=== PATIENT | female | born 1995 | race African-American/Black ===

== ENCOUNTER 2017-05-01 19:56 | Emergency (ER) | payer SELFPAY ==
[~2017-05-01 19:56] MED LIST: ISOVUE-370 76%-LOCM 1 ML ONE
[2017-05-01 21:41] LABS: Hemoglobin 9.6 g/dL (12.0-16.0); Mean Corpuscular HGB CONC 36.2 g/dL (32.0-36.0); Mean Corpuscular Hemoglobin 36.5 pg (25.0-35.0); Mean Platelet Volume 8.1 fL (7.4-10.4); Platelet Count 393 thou/uL (130-400); RBC Distribution Width 18.4 % (11.5-14.5); Red Blood Cell (RBC) Count 2.64 mill/uL (4.00-5.20); Reticulocyte Count 11.4 % (0.5-1.5)
[2017-05-01] MEDS ORDERED: Morphine 4 MG/ML VIAL ONE ×2 (21:52→23:05)
[2017-05-01 21:56] LABS: Band 2 % (5-11); Eosinophils 2 % (0-10); Lymphocytes 22 % (28-48); MDiff Complete? YES; Monocytes 16 % (0-4); Neutrophil 58 % (31-61); Nucleated RBC 6 % (0); PLT Morphology Comment Appears Adequate; Polychromasia MARKED = >4 cells (100X) (0-2/hpf); Sickle Cells MODERATE= 6-15 cells (100X) (None Seen); Target Cells SLIGHT = 2-5 cells (100X) (0-1/hpf); White Blood Cell (WBC) Count 14.7 thou/uL (4.8-10.8)
[2017-05-01] MEDS ORDERED: Ondansetron HCl/PF 4 MG/2 ML Vial ONE (22:00)
[2017-05-01 23:27] LABS: Albumin 3.8 g/dL (3.5-5.0)
[2017-05-01 23:28] LABS: Calcium 8.9 mg/dL (7.8-10.44); Chloride 109 mmol/L (98-107); Potassium 3.9 mmol/L (3.5-5.1); Sodium 141 mmol/L (136-145)
[2017-05-01 23:29] LABS: Globulin 3.8 g/dL (2.4-3.5); Glucose 70 mg/dL (70-105); Protein, Total 7.6 g/dL (6.0-8.3)
[2017-05-01 23:31] LABS: Anion Gap 15 mmol/L (10-20); Bilirubin, Total 3.9 mg/dL (0.2-1.2); Carbon Dioxide 21 mmol/L (22-29)
[2017-05-01 23:32] LABS: Alkaline Phosphatase 80 U/L (40-150); Calc. Creatinine Clearance 0 mL/min (70-130); Estimated GFR-MDRD Greater than 90
[2017-05-01 23:33] LABS: BUN (Urea Nitrogen) 8 mg/dL (7.0-18.7)
[2017-05-01 23:34] LABS: AST (SGOT) 32 U/L (5-34)
[2017-05-01 23:35] LABS: ALT (SGPT) 16 U/L (8-55)
--- NOTE | 2017-05-01 23:39 | CT ---
EXAM CT ANGIOGRAM OF CHEST 05/01/17 HISTORY: Chest pain. Sickle cell disease. COMPARISON: None. TECHNIQUE: CT angiogram of the chest is performed in the axial plane. Three dimensional reformatted images are submitted for interpretation. FINDINGS: No mediastinal mass, lymphadenopathy, or hematoma. Heart size is upper normal. No significant pericar dial fluid. The thoracic aorta and upper abdominal aorta have an overall normal caliber. No periaorti c fat stranding. The visualized upper solid organs are unremarkable. Questionable prominence of the l eft hepatic lobe intrahepatic biliary system, incompletely evaluated. Trachea and central bronchi are patent. Focal 5 mm area of scarring in the right upper lobe. No suspi cious masses or consolidation. No pleural effusion. No pneumothorax. There are no lytic or blastic le sions of the osseous structures. Limited evaluation of the pulmonary arterial system due to timing of contrast bolus. There is adequat e contrast opacification of the pulmonary arterial system to the level of the proximal lobar arteries . Evaluation of mid to distal lobar arteries, segmental and subsegmental arteries is limited. No fill ing defect to the level of the proximal lobar arteries. IMPRESSION: 1. No filling defect to the level of the proximal lobar arteries. 2. Possible prominence of the intrahepatic biliary system involving the left hepatic lobe. Audrey r interrogation with nonemergent abdomen MRI or abdomen and pelvic CT can be performed. POS: [facility]
== END 2017-05-02 | disposition home or self-care (01) ==
LOC: ERS 19:56
DX: D57.00 Hb-SS disease with crisis, unspecified (principal); Z79.899 Other long term (current) drug therapy
CPT/HCPCS: 36415; 71275; 80053; 85025; 85046; 96361; 96374; 96375; 96376; J2270; J2405

== ENCOUNTER 2018-02-04 00:04 | Emergency (ER) | payer SELFPAY ==
[2018-02-04 00:33] LABS: Reticulocyte Count 13.1 % (0.5-1.5)
[2018-02-04 00:39] LABS: Mean Corpuscular Hemoglobin 35.1 pg (27.0-31.0); Red Blood Cell (RBC) Count 2.56 mill/uL (4.20-5.40); White Blood Cell (WBC) Count 13.7 thou/uL (4.8-10.8)
[2018-02-04] MEDS ORDERED: Morphine 4 MG/ML VIAL ONE ×2 (00:39→01:53)
[2018-02-04] MEDS ORDERED: Ondansetron HCl/PF 4 MG/2 ML Vial ONE (00:43)
[2018-02-04] MEDS ORDERED: Ketorolac Tromethamine 30 MG/ML VIAL ONE (00:45)
[2018-02-04 00:52] LABS: ALT (SGPT) 17 U/L (8-55); AST (SGOT) 39 U/L (5-34); Albumin 4.4 g/dL (3.5-5.0); Alkaline Phosphatase 89 U/L (40-150); Anion Gap 16 mmol/L (10-20); BUN (Urea Nitrogen) 9 mg/dL (7.0-18.7); Bilirubin, Total 8.1 mg/dL (0.2-1.2); Calc. Creatinine Clearance 0 mL/min (70-130); Calcium 9.4 mg/dL (7.8-10.44); Carbon Dioxide 21 mmol/L (22-29); Chloride 107 mmol/L (98-107); Estimated GFR-MDRD Greater than 90; Globulin 3.7 g/dL (2.4-3.5); Glucose 108 mg/dL (70-105); Potassium 3.6 mmol/L (3.5-5.1); Protein, Total 8.1 g/dL (6.0-8.3); Sodium 140 mmol/L (136-145)
[2018-02-04 00:58] LABS: Band 1 % (5-11); Eosinophils 1 % (0-10); Hypochromia SLIGHT = 6-15 cells (100X) (0-5/hpf); Lymphocytes 39 % (21-51); MDiff Complete? YES; Mean Corpuscular HGB CONC 36.9 g/dL (32.0-36.0); Mean Platelet Volume 8.4 fL (7.4-10.4); Monocytes 18 % (0-10); Neutrophil 41 % (42-75); Nucleated RBC 3 % (0); Platelet Count 373 thou/uL (130-400); Polychromasia SLIGHT = 2-3 cells (100X) (0-2/hpf); RBC Distribution Width 20.6 % (11.5-14.5); Reflex for Review?? YES; Sickle Cells MODERATE= 6-15 cells (100X) (None Seen); Target Cells SLIGHT = 2-5 cells (100X) (0-1/hpf)
[2018-02-04 01:06] LABS: BHCG - Serum Negative (NEGATIVE); Pregs Control Background? CLEAR/WHITE (CLR/WHITE); Pregs Control Bar Appear? YES (CONTROL BAR)
--- NOTE | 2018-02-04 08:36 | RAD ---
PORTABLE AP CHEST: Date: 02/04/18 HISTORY: Sickle cell crisis, chest pain. COMPARISON: 07/25/16. FINDINGS: Cardiac silhouette is magnified by projection, but does appear large in size compared to prior study. Pulmonary vasculature is within normal limits. The lungs are clear. Osseous structures are unchanged in appearance from prior exam. IMPRESSION: 1. Cardiomegaly. 2. No acute cardiopulmonary process. POS: [facility]
== END 2018-02-04 02:52 | disposition home or self-care (01) ==
LOC: ERS 00:04
DX: D57.00 Hb-SS disease with crisis, unspecified (principal)
CPT/HCPCS: 36415; 71045; 80053; 84703; 85025; 85046; 85060; 96361; 96374; 96375; 96376; J1885; J2270; J2405

== ENCOUNTER 2018-02-04 06:57 | Inpatient (IN) | payer SELFPAY ==
[2018-02-04] MEDS ORDERED: Ondansetron HCl/PF 4 MG/2 ML Vial ONE ×2 (08:11→09:27)
[2018-02-04] MEDS ORDERED: Morphine 4 MG/ML VIAL ONE ×2 (08:11→09:26)
[2018-02-04] MEDS ORDERED: Ketorolac Tromethamine 30 MG/ML VIAL ONE (08:21)
[2018-02-04 08:39] LABS: Reticulocyte Count 12.7 % (0.5-1.5)
[2018-02-04 08:42] LABS: ALT (SGPT) 23 U/L (8-55); AST (SGOT) 67 U/L (5-34); Albumin 4.6 g/dL (3.5-5.0); Alkaline Phosphatase 94 U/L (40-150); Anion Gap 15 mmol/L (10-20); BUN (Urea Nitrogen) 9 mg/dL (7.0-18.7); Bilirubin, Total 9.5 mg/dL (0.2-1.2); Calc. Creatinine Clearance 0 mL/min (70-130); Calcium 9.6 mg/dL (7.8-10.44); Carbon Dioxide 21 mmol/L (22-29); Chloride 108 mmol/L (98-107); Estimated GFR-MDRD Greater than 90; Glucose 98 mg/dL (70-105); Potassium 3.7 mmol/L (3.5-5.1); Protein, Total 8.6 g/dL (6.0-8.3); Sodium 140 mmol/L (136-145)
[2018-02-04 08:47] LABS: BHCG - Serum Negative (NEGATIVE); Pregs Control Background? CLEAR/WHITE (CLR/WHITE); Pregs Control Bar Appear? YES (CONTROL BAR)
[2018-02-04 09:16] LABS: Band 4 % (5-11); Hemoglobin 9.7 g/dL (12.0-16.0); Lymphocytes 8 % (21-51); MDiff Complete? YES; Mean Corpuscular HGB CONC 36.3 g/dL (32.0-36.0); Mean Corpuscular Hemoglobin 34.5 pg (27.0-31.0); Mean Corpuscular Volume 94.9 fL (78.0-98.0); Mean Platelet Volume 8.6 fL (7.4-10.4); Monocytes 6 % (0-10); Neutrophil 82 % (42-75); Nucleated RBC 6 % (0); PLT Morphology Comment Appears Increased; Platelet Count 426 thou/uL (130-400); Poikilocytosis MODERATE=16-30 cells (100X) (0-5/hpf); Polychromasia SLIGHT = 2-3 cells (100X) (0-2/hpf); RBC Distribution Width 20.6 % (11.5-14.5); Red Blood Cell (RBC) Count 2.82 mill/uL (4.20-5.40); Sickle Cells MODERATE= 6-15 cells (100X) (None Seen)
[2018-02-04 09:33] LABS: Bilirubin Negative (Negative); Blood, Urine Moderate (Negative); Clarity CLEAR (Clear); Glucose, Urine (Dipstick) Negative (Negative); Leukocyte Negative (Negative); Nitrite Negative (Negative); Protein, Urine (Dipstick) 100 mg/dL (Neg-Trace); Specific Gravity, Urine 1.006 (1.002-1.036)
[2018-02-04 09:36] LABS: Bacteria/HPF Rare-Few HPF (None Seen); Hyaline Casts/LPF 0-3 HYALINE CAST LPF (0-3 Hyaline); Pathc Cast-AUWi Flag 0.14 (0-2.49); RBC/HPF 0-3 HPF (0-3); Squamous Epithelial 0-3 HPF (0-3); WBC/HPF 0-3 HPF (0-3)
--- NOTE | 2018-02-04 09:38 | RAD ---
FRONTAL VIEW CHEST: Comparison: 02-04-18 Indication: Chest pain FINDINGS: Cardiac silhouette is stable. There is no new consolidation or effusion. No pneumothorax. Osseous str uctures are intact. IMPRESSION: 1. Stable chest. 2. Persistent enlargement of the cardiac silhouette. POS: [facility]
[2018-02-04] MEDS ORDERED: cefTRIAXone\\ROCEPHIN 1 GM VIAL ONE (09:40)
[2018-02-04] MEDS ORDERED: Azithromycin 500 MG VIAL ONE (09:40)
[2018-02-04] MEDS ORDERED: Zolpidem Tartrate 5 MG TAB PO PRN (12:29)
[2018-02-04] MEDS ORDERED: Bisacodyl 5 MG TAB PO PRN (12:29)
[2018-02-04] MEDS ORDERED: Bisacodyl 10 MG SUPP PR PRN (12:29)
[2018-02-04] MEDS ORDERED: Chloraseptic Spray 180 ml Bottle PO PRN (12:29)
[2018-02-04] MEDS ORDERED: Ondansetron HCl/PF 4 MG/2 ML Vial IVP PRN (12:29)
[2018-02-04] MEDS ORDERED: Loperamide HCl 2 MG CAP PO PRN (12:29)
[2018-02-04] MEDS ORDERED: Diabetic Tussin 200 MG/10 ML UDCUP PO PRN (12:29)
[2018-02-04] MEDS ORDERED: Ondansetron ODT 4 MG TAB PO PRN (12:29)
[2018-02-04] MEDS ORDERED: diphenhydrAMINE 25 MG CAP PO PRN (12:29)
[2018-02-04] MEDS ORDERED: Artificial Tears 18 DROP/0.9 ML EA EYE PRN (12:29)
[2018-02-04] MEDS ORDERED: Senokot 8.6 MG TAB PO PRN (12:29)
[2018-02-04] MEDS ORDERED: Milk Of Magnesia 30 ML UDCUP PO PRN (12:29)
[2018-02-04] MEDS ORDERED: Calcium Carbonate 500 MG ChewTAB PO PRN (12:29)
[2018-02-04] MEDS ORDERED: hydrALAZINE 20 MG/ML VIAL SLOW IVP PRN (12:29)
[2018-02-04] MEDS ORDERED: Eucerin (Mineral Oil/Petrolatum,White) 30 gm Jar TOP PRN (12:29)
[2018-02-04] MEDS ORDERED: diphenhydrAMINE 50 MG/ML VIAL IVP PRN (12:29)
[2018-02-04] MEDS ORDERED: Sodium Chloride 0.65% Nasal 44 ML BOT EA NARE PRN (12:29)
[2018-02-04] MEDS ORDERED: Morphine 4 MG/ML VIAL SLOW IVP PRN (12:45)
[2018-02-04] MEDS ORDERED: cefTRIAXone\\ROCEPHIN 1 GM in Sodium Chloride 0.9% 100 ML IVPB SCH (12:45)
[2018-02-04] MEDS: Sodium Chloride 0.9% 1,000 ML IV SCH ×3 (12:48→22:47)
--- NOTE | 2018-02-04 13:02 | HP ---
PRIMARY CARE PHYSICIAN: [facility] call admission. REASON FOR ADMISSION: Acute sickle cell painful crisis. HISTORY OF PRESENT ILLNESS: This is a 22-year-old -[place] female, who has underlying sickle cell disease, who gets sickle cell painful crisis, mostly during her menstrual cycle. This year, merna crowder required total of 3 admission in hospital for her severe painful crises. She is managing her mild painful crisis with [id number] pain medication. Last night, the patient needed to come to the emergency room for her leg pain, arm pain, and back pain. She was treated in the emergency room with the fluid and pain medication, and she was feeling a little bit better and that is why she went to [facility], but after going home, her pain started back again and it was about 10/10 in intensity, sharp janelle n. She denied any chest pain. She denies any nausea or vomiting, but she was feeling mild shortness of breath. She denies any urinary tract infection symptoms. She denies any constipation or diarrhe a. She denies any fever or chills. Last night, when she came to emergency room, her WBC count was 13.7, and this morning, she has to ret urn back for a similar intense pain and her white count increased to 19.0. She also has reticulocyto sis. At this point, the patient is still in painful crisis and she is not stable enough to go home f [facility] emergency room and that is why we decided to keep this patient in the hospital. REVIEW OF SYSTEMS: The following complete review of systems was negative, unless otherwise mentioned in the HPI or below: Constitutional: Weight loss or gain, ability to conduct usual activities. Sk in: Rash, itching. Eyes: Double vision, pain. ENT/Mouth: Nose bleeding, neck stiffness, pain, te nderness. Cardiovascular: Palpitations, dyspnea on exertion, orthopnea. Respiratory: Shortness of breath, wheezing, cough, hemoptysis, fever, or night sweats. Gastrointestinal: Poor appetite, abdo berny pain, heartburn, nausea, vomiting, constipation, or diarrhea. Genitourinary: Urgency, frequen cy, dysuria, nocturia. Musculoskeletal: Pain, swelling. Neurologic/Psychiatric: Anxiety, depressi on. Allergy/Immunologic: Skin rash, bleeding tendency. Please see my HPI for pertinent positive an d negative. All other review of systems reviewed and negative except as mentioned in the HPI. EMERGENCY ROOM COURSE: The patient is given morphine 4 mg x2, Toradol, Rocephin, azithromycin, IV fl uid, Zofran 4 mg. PAST MEDICAL HISTORY: Sickle cell disease; history of cholelithiasis, required surgical: Laparoscop ic cholecystectomy. PAST SURGICAL HISTORY: Umbilical herniorrhaphy, laparoscopic cholecystectomy. PAST PSYCHIATRIC HISTORY: Reviewed and negative. ALLERGIES: No known drug allergy. CURRENT HOME MEDICATIONS: The patient is not following any ordnance mechanic and she is not on any specif ic treatment for sickle cell disease, but she is taking [id number] pain medication and folic ac id. FAMILY HISTORY: Sickle cell disease to her aunt. SOCIAL HISTORY: Patient works at [employer]. She denies any tobacco, alcohol, or illicit drug abuse. PHYSICAL EXAMINATION: VITAL SIGNS: On arrival, blood pressure 141/90, pulse 89, respiratory rate 18, temperature 98.5, sat uration 100% on room air, weight 72.6 kilogram. GENERAL: Patient is currently alert, awake, in no obvious acute distress. HEENT: Head: Normocephalic, atraumatic. Eyes: Pupils round, reactive to light. Extraocular muscl e intact. ENT: Oropharynx within normal limits. Moist mucous membranes. No oral lesion, no pharyn geal erythema, no exudate. NECK: Supple, no JVD, no thyromegaly, no carotid bruit, no jugular venous distention. LUNGS: Clear to auscultation without any rhonchi or rales. CARDIAC: S1 and S2, regular. No murmur, no gallop, no rub. ABDOMEN: Soft, bowel sounds present, nontender, nondistended. No organomegaly, no mass, no suprapub ic tenderness. BACK EXAMINATION: Unremarkable, no CVA tenderness. EXTREMITIES: Upper extremities, passive movement of all joints are normal. Lower extremities, no ed rosa. Good distal pulsation. SKIN: No skin rash. HEMATOLOGICAL SYSTEM: No lymphadenopathy. NEUROLOGIC: Nonfocal examination. Eye examination, icterus noted in the sclerae. SIGNIFICANT LABORATORIES: CBC: WBC 19.0, hemoglobin 9.7, platelets 426 with bandemia. Reticulocyte count 12.7. BMP: Sodium 140, potassium 3.7, chloride 108, carbon dioxide 21, anion gap 15, BUN 9, creatinine 0.61, glucose 98, calcium 9.6. LFT: Bilirubin 9.5, AST 67, ALT 23, alkaline phosphatase 94, albumin 4.6. test negative. Urinalysis: Bilirubinogen present. Chest x-ray, based o n my review, no acute cardiopulmonary process. ASSESSMENT AND PLAN: 1. Acute sickle cell painful crisis. The patient will require admission in hospital for pain contro l. She will be treated with IV fluid NS at 125 mL per hour. Oxygen will be given and her pain will be controlled with narcotics with morphine 4 mg every 2 hourly p.r.n., Harold 10 mg 1 tablet q.4 hourl y p.r.n. along with Toradol 15 mg IV q.6 hourly p.r.n. We will try to control her pain as quickly as possible. We will also continue folic acid and vitamin B12 therapy. 2. Leukocytosis with thrombocytosis, likely due to sickle cell painful crisis. Does not suspect any infection, but until her improvement, we will continue empirically Rocephin 1 gram q.24 hours. 3. Sickle cell anemia. The patient will need outpatient Hematology followup. She will need hydroxy urea to prevent recurrent hospitalization. Patient will continue folic acid, vitamin B12 therapy. B ecause of current acute sickle cell painful crisis, he has reticulocytosis. 4. Abnormal liver function tests. Patient has hyperbilirubinemia due to sickle cell disease. 5. Deep venous thrombosis prophylaxis. Lovenox 40 mg subcutaneous daily. 6. Gastrointestinal prophylaxis, Pepcid 20 mg p.o. b.i.d. CODE STATUS: The patient is FULL CODE. The patient's mother is surrogate decision maker. Disposition plan based on clinical course. We are expecting patient's stay in hospital more than 2 m idnights. Plan of care discussed with the patient and her mother at bedside.
[2018-02-04] MEDS: HYDROcodone/Acetaminophen 10/325 mg Tablet PO PRN (13:04)
[2018-02-04] MEDS: Ketorolac Tromethamine 30 MG/ML VIAL IVP PRN ×2 (16:59→23:06)
[2018-02-04] MEDS: Enoxaparin Sodium 40 MG/0.4 ML SYRINGE SC SCH (21:30)
[2018-02-04] MEDS: Famotidine 20 MG TAB PO SCH (21:30)
[2018-02-04] MEDS: Acetaminophen 325 MG TAB PO PRN (23:24)
[2018-02-05] MEDS: Ketorolac Tromethamine 30 MG/ML VIAL IVP PRN ×4 (04:53→21:38)
[2018-02-05 06:40] LABS: ALT (SGPT) 22 U/L (8-55); AST (SGOT) 63 U/L (5-34); Albumin 3.7 g/dL (3.5-5.0); Alkaline Phosphatase 85 U/L (40-150); Anion Gap 12 mmol/L (10-20); BUN (Urea Nitrogen) 7 mg/dL (7.0-18.7); Bilirubin, Total 7.7 mg/dL (0.2-1.2); Calc. Creatinine Clearance 0 mL/min (70-130); Calcium 8.5 mg/dL (7.8-10.44); Carbon Dioxide 21 mmol/L (22-29); Chloride 107 mmol/L (98-107); Estimated GFR-MDRD Greater than 90; Globulin 3.2 g/dL (2.4-3.5); Glucose 115 mg/dL (70-105); Potassium 3.2 mmol/L (3.5-5.1); Protein, Total 6.9 g/dL (6.0-8.3); Sodium 137 mmol/L (136-145)
[2018-02-05 06:51] LABS: Band 5 % (5-11); Eosinophils 1 % (0-10); Hemoglobin 8.5 g/dL (12.0-16.0); Lymphocytes 13 % (21-51); MDiff Complete? YES; Mean Corpuscular HGB CONC 36.2 g/dL (32.0-36.0); Mean Corpuscular Hemoglobin 34.3 pg (27.0-31.0); Mean Corpuscular Volume 94.6 fL (78.0-98.0); Monocytes 11 % (0-10); Neutrophil 70 % (42-75); Nucleated RBC 13 % (0); PLT Morphology Comment Appears Adequate; Platelet Count 321 thou/uL (130-400); Polychromasia SLIGHT = 2-3 cells (100X) (0-2/hpf); RBC Distribution Width 19.3 % (11.5-14.5); Red Blood Cell (RBC) Count 2.48 mill/uL (4.20-5.40); Sickle Cells MODERATE= 6-15 cells (100X) (None Seen); White Blood Cell (WBC) Count 15.2 thou/uL (4.8-10.8)
[2018-02-05] MEDS ORDERED: Potassium Chloride 20 MEQ TAB PO SCH (08:00)
[2018-02-05] MEDS: Famotidine 20 MG TAB PO SCH ×2 (08:07→21:33)
[2018-02-05] MEDS: Cyanocobalamin (Vitamin B-12) 1,000 MCG TAB PO SCH (08:07)
[2018-02-05] MEDS: Folic Acid 1 MG TAB PO SCH (08:07)
[2018-02-05] MEDS: cefTRIAXone\\ROCEPHIN 1 GM in Sodium Chloride 0.9% 100 ML IVPB SCH (08:07)
[2018-02-05] MEDS ORDERED: Enoxaparin Sodium 40 MG/0.4 ML SYRINGE SC SCH (09:00)
--- NOTE | 2018-02-05 09:49 | PDOC.PN ---
- Subjective Encounter Start Date: 02/05/18 Encounter Start Time: 07:30 pt was still having lot of pain this morning Patient seen and examined. No overnight events - Objective Resuscitation Status: Resuscitation Status FULL:Full Resuscitation MAR Reviewed: Yes Vital Signs & Weight: Vital Signs (12 hours) Temp Pulse Resp BP Pulse Ox 02/05/18 08:00 99.3 F 96 18 133/83 96 02/05/18 07:06 98 02/05/18 04:45 98.3 F 91 18 128/74 98 02/05/18 00:30 99.2 F 02/04/18 23:06 101.0 F H 97 20 133/74 96 I&O: 02/04/18 02/05/18 02/06/18 06:59 06:59 06:59 Intake Total 3207 Balance 3207 Result Diagrams: 02/05/18 05:53 02/05/18 05:53 Phys Exam - Physical Examination Constitutional: NAD HEENT: PERRLA, moist MMs, sclera anicteric Neck: no JVD, supple Respiratory: no wheezing, no rales, no rhonchi Cardiovascular: RRR, no significant murmur, no rub Gastrointestinal: soft, non-tender, no distention, positive bowel sounds Musculoskeletal: no edema, pulses present Neurological: non-focal, normal sensation, moves all 4 limbs Psychiatric: normal affect, A&O x 3 Skin: no rash, normal turgor Dx/Plan (1) Sickle cell pain crisis Code(s): D57.00 - HB-SS DISEASE WITH CRISIS, UNSPECIFIED Status: Acute (2) Hypokalemia Code(s): E87.6 - HYPOKALEMIA Status: Acute (3) Leukocytosis Code(s): D72.829 - ELEVATED WHITE BLOOD CELL COUNT, UNSPECIFIED Status: Acute (4) Hyperbilirubinemia Code(s): E80.6 - OTHER DISORDERS OF BILIRUBIN METABOLISM Status: Chronic (5) Sickle cell anemia Code(s): D57.1 - SICKLE-CELL DISEASE WITHOUT CRISIS Status: Chronic (6) Transaminitis Code(s): R74.0 - NONSPEC ELEV OF LEVELS OF TRANSAMNS & LACTIC ACID DEHYDRGNSE Status: Chronic - Plan cont current plan of care, continue antibiotics, incentive spirometry, out of bed/ambulate * replace potassium * continue IVF, oxygen, and narcotics for pain control * continue empiric rocephin * medication reviewed as below * symptomatic treatment. Review of Systems - Review of Systems Constitutional: negative: fever, chills, sweats, weakness, malaise, other Eyes: negative: Pain, Vision Change, Conjunctivae Inflammation, Eyelid Inflammation, Redness, Other ENT: negative: Ear Pain, Ear Discharge, Nose Pain, Nose Discharge, Nose Congestion, Mouth Pain, Mouth Swelling, Throat Pain, Throat Swelling, Other Respiratory: negative: Cough, Dry, Shortness of Breath, Hemoptysis, SOB with Excertion, Pleuritic Pain, Sputum, Wheezing Cardiovascular: negative: chest pain, palpitations, orthopnea, paroxysmal nocturnal dyspnea, edema, light headedness, other Gastrointestinal: negative: Nausea, Vomiting, Abdominal Pain, Diarrhea, Constipation, Melena, Hematochezia, Other Genitourinary: negative: Dysuria, Frequency, Incontinence, Hematuria, Retention , Other Musculoskeletal: Arm Pain, Leg Pain. negative: Neck Pain, Shoulder Pain, Back Pain, Hand Pain, Foot Pain, Other - Medications/Allergies Allergies/Adverse Reactions: Allergies Allergy/AdvReac Type Severity Reaction Status Date / Time No Known Drug Allergies Allergy Verified 08/04/15 11:12 Medications: Current Medications Acetaminophen (Tylenol) 650 mg PO Q4H PRN PRN Reason: Headache/Fever/Mild Pain (1-3) Last Admin: 02/04/18 23:24 Dose: 650 mg Hydrocodone Bitart/Acetaminophen ([place] 10/325) 1 tab PO Q4H PRN PRN Reason: Moderate Pain (4-6) Last Admin: 02/04/18 13:04 Dose: 1 tab Artificial Tears (Tears Naturale) 0 drop EA EYE PRN PRN PRN Reason: Dry Eyes Bisacodyl (Dulcolax) 10 mg PO DAILYPRN PRN PRN Reason: Constipation Bisacodyl (Dulcolax) 10 mg [place] DAILYPRN PRN PRN Reason: Constipation Calcium Carbonate (Tums) 1,000 mg PO Q4H PRN PRN Reason: Heartburn or Indigestion Cyanocobalamin (Vitamin B-12) 1,000 mcg PO DAILY [facility] Last Admin: 02/05/18 08:07 Dose: 1,000 mcg Diphenhydramine HCl (Benadryl) 25 mg IVP Q4H PRN PRN Reason: Itching Diphenhydramine HCl (Benadryl) 25 mg PO Q4H PRN PRN Reason: Itching Enoxaparin Sodium (Lovenox) 40 mg SC 2100 [facility] Last Admin: 02/04/18 21:30 Dose: 40 mg Famotidine (Pepcid) 20 mg PO BID [facility] Last Admin: 02/05/18 08:07 Dose: 20 mg Folic Acid (Folvite) 1 mg PO DAILY [facility] Last Admin: 02/05/18 08:07 Dose: 1 mg Guaifenesin (Robitussin Sf) 200 mg PO Q4H PRN PRN Reason: Cough Hydralazine HCl (Apresoline) 10 mg SLOW IVP Q4H PRN PRN Reason: Systolic BP > 180 Sodium Chloride (Normal Saline 0.9%) 1,000 mls @ 125 mls/hr IV .Q8H [facility] Last Admin: 02/04/18 22:47 Dose: 1,000 mls Ceftriaxone Sodium 1 gm/ (Sodium Chloride) 100 mls @ 200 mls/hr IVPB 0900 [facility] Last Admin: 02/05/18 08:07 Dose: 100 mls Ketorolac Tromethamine (Toradol) 15 mg IVP Q6H PRN PRN Reason: Pain Stop: 02/09/18 12:32 Last Admin: 02/05/18 04:53 Dose: 15 mg Loperamide HCl (Imodium) 4 mg PO ONE PRN PRN Reason: Diarrhea/Loose Stools Stop: 02/05/18 12:30 Magnesium Hydroxide (Milk Of Magnesium) 30 ml PO DAILYPRN PRN PRN Reason: Constipation Mineral Oil/White Petrolatum (Eucerin Cream) 0 gm TOP BIDPRN PRN PRN Reason: Dry Skin Morphine Sulfate (Morphine) 4 mg SLOW IVP Q2H PRN PRN Reason: Severe Pain (7-10) Last Admin: 02/05/18 08:05 Dose: 4 mg Ondansetron HCl (Zofran Odt) 4 mg PO Q6H PRN PRN Reason: Nausea/Vomiting Ondansetron HCl (Zofran) 4 mg IVP Q6H PRN PRN Reason: Nausea/Vomiting Phenol (Chloraseptic [place] 180 Ml Bot) 0 ml PO PRN PRN PRN Reason: Sore Throat Potassium Chloride (K-Dur) 40 meq PO NOW [facility] Stop: 02/05/18 12:00 Last Admin: 02/05/18 08:06 Dose: 40 meq Saccharomyces Boulardii (Florastor) 250 mg PO DAILY [facility] Senna (Senokot) 2 tab PO HSPRN PRN PRN Reason: Constipation Sodium Chloride ([place] Nasal [place] 0.65%) 0 ml EA NARE QIDPRN PRN PRN Reason: Nasal Congestion Zolpidem Tartrate (Ambien) 5 mg PO HSPRN PRN PRN Reason: Insomnia
[2018-02-05] MEDS: Sodium Chloride 0.9% 1,000 ML IV SCH ×2 (10:30→19:36)
[2018-02-05] MEDS: Saccharomyces boulardii 250 MG CAP PO SCH (14:38)
[2018-02-05 16:28] VITALS: BMI 28.0
[2018-02-05] MEDS: Enoxaparin Sodium 40 MG/0.4 ML SYRINGE SC SCH (21:33)
[2018-02-06] MEDS: Sodium Chloride 0.9% 1,000 ML IV SCH ×2 (03:44→12:03)
[2018-02-06] MEDS: Ketorolac Tromethamine 30 MG/ML VIAL IVP PRN ×3 (03:45→21:17)
[2018-02-06] MEDS: Acetaminophen 325 MG TAB PO PRN ×3 (04:02→19:37)
[2018-02-06] MEDS: Saccharomyces boulardii 250 MG CAP PO SCH (09:01)
[2018-02-06] MEDS: Famotidine 20 MG TAB PO SCH ×2 (09:01→21:17)
[2018-02-06] MEDS: Folic Acid 1 MG TAB PO SCH (09:01)
[2018-02-06] MEDS: Cyanocobalamin (Vitamin B-12) 1,000 MCG TAB PO SCH (09:01)
[2018-02-06] MEDS: cefTRIAXone\\ROCEPHIN 1 GM in Sodium Chloride 0.9% 100 ML IVPB SCH (09:02)
[2018-02-06] MEDS: Sodium Chloride 0.9% 20 ML ONE (09:04)
--- NOTE | 2018-02-06 09:35 | PDOC.PN ---
- Subjective Encounter Start Date: 02/06/18 Encounter Start Time: 07:40 pt had fever early this morning, no UTI symptoms, no cough, her pain is getting better - Objective Resuscitation Status: Resuscitation Status FULL:Full Resuscitation Vital Signs & Weight: Vital Signs (12 hours) Temp Pulse Resp BP Pulse Ox 02/06/18 07:33 99.1 F 87 20 132/78 02/06/18 05:53 98.5 F 100 20 96 02/06/18 03:51 100.7 F H 110 H 20 147/85 H 95 02/05/18 23:41 100.5 F H 109 H 20 138/80 94 L Weight Weight 158 lb 11.725 oz I&O: 02/05/18 02/06/18 02/07/18 06:59 06:59 06:59 Intake Total 3207 3595 Balance 3207 3595 Result Diagrams: 02/05/18 05:53 02/05/18 05:53 Phys Exam - Physical Examination Constitutional: NAD HEENT: PERRLA, moist MMs, sclera anicteric Neck: no JVD, supple Respiratory: no wheezing, no rales, no rhonchi Cardiovascular: RRR, no significant murmur, no rub Gastrointestinal: soft, non-tender, no distention, positive bowel sounds Musculoskeletal: no edema, pulses present Neurological: non-focal, normal sensation, moves all 4 limbs Lymphatic: no nodes Psychiatric: normal affect, A&O x 3 Skin: no rash, normal turgor Dx/Plan (1) Sickle cell pain crisis Code(s): D57.00 - HB-SS DISEASE WITH CRISIS, UNSPECIFIED Status: Acute (2) Hypokalemia Code(s): E87.6 - HYPOKALEMIA Status: Acute (3) Leukocytosis Code(s): D72.829 - ELEVATED WHITE BLOOD CELL COUNT, UNSPECIFIED Status: Acute (4) Hyperbilirubinemia Code(s): E80.6 - OTHER DISORDERS OF BILIRUBIN METABOLISM Status: Chronic (5) Sickle cell anemia Code(s): D57.1 - SICKLE-CELL DISEASE WITHOUT CRISIS Status: Chronic (6) Transaminitis Code(s): R74.0 - NONSPEC ELEV OF LEVELS OF TRANSAMNS & LACTIC ACID DEHYDRGNSE Status: Chronic - Plan cont current plan of care, plan discussed w/ family, continue antibiotics, incentive spirometry, out of bed/ambulate * today will reduce IVF at 75 ml per hour * ambulate as tolerated * pain controlled with current pain meds * as she has fever, will monitor today * continue rocephin * repeat labs tomorrow * discussed with mother. Review of Systems - Review of Systems Constitutional: fever. negative: chills, sweats, weakness, malaise, other Respiratory: negative: Cough, Dry, Shortness of Breath, Hemoptysis, SOB with Excertion, Pleuritic Pain, Sputum, Wheezing Cardiovascular: negative: chest pain, palpitations, orthopnea, paroxysmal nocturnal dyspnea, edema, light headedness, other Gastrointestinal: negative: Nausea, Vomiting, Abdominal Pain, Diarrhea, Constipation, Melena, Hematochezia, Other Genitourinary: negative: Dysuria, Frequency, Incontinence, Hematuria, Retention , Other Musculoskeletal: negative: Neck Pain, Shoulder Pain, Arm Pain, Back Pain, Hand Pain, Leg Pain, Foot Pain, Other Skin: negative: Rash, Lesions, Thiago, Bruising, Other - Medications/Allergies Allergies/Adverse Reactions: Allergies Allergy/AdvReac Type Severity Reaction Status Date / Time No Known Drug Allergies Allergy Verified 08/04/15 11:12 Medications: Current Medications Acetaminophen (Tylenol) 650 mg PO Q4H PRN PRN Reason: Headache/Fever/Mild Pain (1-3) Last Admin: 02/06/18 04:02 Dose: 650 mg Hydrocodone Bitart/Acetaminophen ([place] 10/325) 1 tab PO Q4H PRN PRN Reason: Moderate Pain (4-6) Last Admin: 02/04/18 13:04 Dose: 1 tab Artificial Tears (Tears Naturale) 0 drop EA EYE PRN PRN PRN Reason: Dry Eyes Bisacodyl (Dulcolax) 10 mg PO DAILYPRN PRN PRN Reason: Constipation Bisacodyl (Dulcolax) 10 mg [place] DAILYPRN PRN PRN Reason: Constipation Calcium Carbonate (Tums) 1,000 mg PO Q4H PRN PRN Reason: Heartburn or Indigestion Cyanocobalamin (Vitamin B-12) 1,000 mcg PO DAILY [facility] Last Admin: 02/06/18 09:01 Dose: 1,000 mcg Diphenhydramine HCl (Benadryl) 25 mg IVP Q4H PRN PRN Reason: Itching Diphenhydramine HCl (Benadryl) 25 mg PO Q4H PRN PRN Reason: Itching Enoxaparin Sodium (Lovenox) 40 mg SC 2100 [facility] Last Admin: 02/05/18 21:33 Dose: 40 mg Famotidine (Pepcid) 20 mg PO BID [facility] Last Admin: 02/06/18 09:01 Dose: 20 mg Folic Acid (Folvite) 1 mg PO DAILY [facility] Last Admin: 02/06/18 09:01 Dose: 1 mg Guaifenesin (Robitussin Sf) 200 mg PO Q4H PRN PRN Reason: Cough Hydralazine HCl (Apresoline) 10 mg SLOW IVP Q4H PRN PRN Reason: Systolic BP > 180 Sodium Chloride (Normal Saline 0.9%) 1,000 mls @ 125 mls/hr IV .Q8H [facility] Last Admin: 02/06/18 03:44 Dose: 1,000 mls Ceftriaxone Sodium 1 gm/ (Sodium Chloride) 100 mls @ 200 mls/hr IVPB 0900 [facility] Last Admin: 02/06/18 09:02 Dose: 100 mls Ketorolac Tromethamine (Toradol) 15 mg IVP Q6H PRN PRN Reason: Pain Stop: 02/09/18 12:32 Last Admin: 02/06/18 03:45 Dose: 15 mg Magnesium Hydroxide (Milk Of Magnesium) 30 ml PO DAILYPRN PRN PRN Reason: Constipation Mineral Oil/White Petrolatum (Eucerin Cream) 0 gm TOP BIDPRN PRN PRN Reason: Dry Skin Morphine Sulfate (Morphine) 4 mg SLOW IVP Q2H PRN PRN Reason: Severe Pain (7-10) Last Admin: 02/06/18 01:41 Dose: 4 mg Ondansetron HCl (Zofran Odt) 4 mg PO Q6H PRN PRN Reason: Nausea/Vomiting Ondansetron HCl (Zofran) 4 mg IVP Q6H PRN PRN Reason: Nausea/Vomiting Phenol (Chloraseptic [employer] 180 Ml Bot) 0 ml PO PRN PRN PRN Reason: Sore Throat Saccharomyces Boulardii (Florastor) 250 mg PO DAILY [facility] Last Admin: 02/06/18 09:01 Dose: 250 mg Senna (Senokot) 2 tab PO HSPRN PRN PRN Reason: Constipation Sodium Chloride ([place] Nasal [employer] 0.65%) 0 ml EA NARE QIDPRN PRN PRN Reason: Nasal Congestion Zolpidem Tartrate (Ambien) 5 mg PO HSPRN PRN PRN Reason: Insomnia
[2018-02-06] MEDS: Enoxaparin Sodium 40 MG/0.4 ML SYRINGE SC SCH (21:19)
[2018-02-07] MEDS: Sodium Chloride 0.9% 1,000 ML IV SCH ×2 (11:46→15:51)
[2018-02-07 12:44] LABS: Anion Gap 11 mmol/L (10-20); BUN (Urea Nitrogen) 6 mg/dL (7.0-18.7); Bilirubin, Total 11.3 mg/dL (0.2-1.2); Calc. Creatinine Clearance 206 mL/min (70-130); Calcium 8.4 mg/dL (7.8-10.44); Carbon Dioxide 23 mmol/L (22-29); Chloride 107 mmol/L (98-107); Estimated GFR-MDRD Greater than 90; Glucose 91 mg/dL (70-105); Potassium 3.2 mmol/L (3.5-5.1); Sodium 138 mmol/L (136-145)
[2018-02-07 12:45] LABS: ALT (SGPT) 19 U/L (8-55); AST (SGOT) 37 U/L (5-34); Albumin 3.1 g/dL (3.5-5.0); Alkaline Phosphatase 104 U/L (40-150); Globulin 3.2 g/dL (2.4-3.5); Protein, Total 6.3 g/dL (6.0-8.3)
--- NOTE | 2018-02-07 14:41 | PDOC.PN ---
Addendum entered and electronically signed by Lisa Miramontes MD 04/15 13:23: for her low HB will transfuse 1 unit PRBC will control fever first, and then start transfuse, will monitor repeat labs tomorrow Original Note: - Subjective Encounter Start Date: 02/07/18 Encounter Start Time: 09:00 this morning pt has fever, her Hb dropped, she still has less degree pain, - Objective Resuscitation Status: Resuscitation Status FULL:Full Resuscitation MAR Reviewed: Yes Vital Signs & Weight: Vital Signs (12 hours) Temp Pulse Resp BP 02/07/18 12:14 100.6 F H 02/07/18 11:00 101.7 F H 107 H 16 129/71 Weight Weight 158 lb 11.725 oz I&O: 02/06/18 02/07/18 02/08/18 06:59 06:59 06:59 Intake Total 3595 3000 Balance 3595 3000 Result Diagrams: 02/05/18 05:53 02/07/18 03:30 Phys Exam - Physical Examination Constitutional: NAD HEENT: PERRLA, moist MMs, sclera anicteric Neck: no JVD, supple Respiratory: no wheezing, no rales, no rhonchi Cardiovascular: RRR, no significant murmur, no rub Gastrointestinal: soft, non-tender, no distention, positive bowel sounds Musculoskeletal: no edema, pulses present Neurological: non-focal, normal sensation, moves all 4 limbs Psychiatric: normal affect, A&O x 3 Skin: no rash, normal turgor Dx/Plan (1) Sickle cell pain crisis Code(s): D57.00 - HB-SS DISEASE WITH CRISIS, UNSPECIFIED Status: Acute (2) Hypokalemia Code(s): E87.6 - HYPOKALEMIA Status: Acute (3) Leukocytosis Code(s): D72.829 - ELEVATED WHITE BLOOD CELL COUNT, UNSPECIFIED Status: Acute (4) Hyperbilirubinemia Code(s): E80.6 - OTHER DISORDERS OF BILIRUBIN METABOLISM Status: Chronic (5) Sickle cell anemia Code(s): D57.1 - SICKLE-CELL DISEASE WITHOUT CRISIS Status: Chronic (6) Transaminitis Code(s): R74.0 - NONSPEC ELEV OF LEVELS OF TRANSAMNS & LACTIC ACID DEHYDRGNSE Status: Chronic (7) SIRS (systemic inflammatory response syndrome) Code(s): R65.10 - SIRS OF NON-INFECTIOUS ORIGIN W/O ACUTE ORGAN DYSFUNCTION Status: Acute - Plan cont current plan of care, plan discussed w/ family, continue antibiotics, incentive spirometry * as pt has recurrent fever, will change to cefepime and levaquin * will get repeat chest xray * send blood and urine culture * continue IVF * replace potassium * not ready for discharge * discussed with mother. Review of Systems - Review of Systems Constitutional: fever, weakness. negative: chills, sweats, malaise, other Respiratory: negative: Cough, Dry, Shortness of Breath, Hemoptysis, SOB with Excertion, Pleuritic Pain, Sputum, Wheezing Cardiovascular: negative: chest pain, palpitations, orthopnea, paroxysmal nocturnal dyspnea, edema, light headedness, other Gastrointestinal: negative: Nausea, Vomiting, Abdominal Pain, Diarrhea, Constipation, Melena, Hematochezia, Other Genitourinary: negative: Dysuria, Frequency, Incontinence, Hematuria, Retention , Other Musculoskeletal: Arm Pain, Leg Pain. negative: Neck Pain, Shoulder Pain, Back Pain, Hand Pain, Foot Pain, Other Skin: negative: Rash, Lesions, Thiago, Bruising, Other - Medications/Allergies Allergies/Adverse Reactions: Allergies Allergy/AdvReac Type Severity Reaction Status Date / Time No Known Drug Allergies Allergy Verified 08/04/15 11:12 Medications: Current Medications Acetaminophen (Tylenol) 650 mg PO Q4H PRN PRN Reason: Headache/Fever/Mild Pain (1-3) Last Admin: 02/06/18 19:37 Dose: 650 mg Hydrocodone Bitart/Acetaminophen ([place] 10/325) 1 tab PO Q4H PRN PRN Reason: Moderate Pain (4-6) Last Admin: 02/04/18 13:04 Dose: 1 tab Artificial Tears (Tears Naturale) 0 drop EA EYE PRN PRN PRN Reason: Dry Eyes Bisacodyl (Dulcolax) 10 mg PO DAILYPRN PRN PRN Reason: Constipation Last Admin: 02/06/18 15:22 Dose: 10 mg Bisacodyl (Dulcolax) 10 mg CO DAILYPRN PRN PRN Reason: Constipation Calcium Carbonate (Tums) 1,000 mg PO Q4H PRN PRN Reason: Heartburn or Indigestion Cyanocobalamin (Vitamin B-12) 1,000 mcg PO DAILY [facility] Last Admin: 02/06/18 09:01 Dose: 1,000 mcg Diphenhydramine HCl (Benadryl) 25 mg IVP Q4H PRN PRN Reason: Itching Diphenhydramine HCl (Benadryl) 25 mg PO Q4H PRN PRN Reason: Itching Enoxaparin Sodium (Lovenox) 40 mg SC 2100 [facility] Last Admin: 02/06/18 21:19 Dose: 40 mg Famotidine (Pepcid) 20 mg PO BID [facility] Last Admin: 02/06/18 21:17 Dose: 20 mg Folic Acid (Folvite) 1 mg PO DAILY [facility] Last Admin: 02/06/18 09:01 Dose: 1 mg Guaifenesin (Robitussin Sf) 200 mg PO Q4H PRN PRN Reason: Cough Hydralazine HCl (Apresoline) 10 mg SLOW IVP Q4H PRN PRN Reason: Systolic BP > 180 Ceftriaxone Sodium 1 gm/ (Sodium Chloride) 100 mls @ 200 mls/hr IVPB 0900 [facility] Last Admin: 02/06/18 09:02 Dose: 100 mls Sodium Chloride (Normal Saline 0.9%) 1,000 mls @ 75 mls/hr IV .[id number] [facility] Last Admin: 02/07/18 11:46 Dose: Not Given Ketorolac Tromethamine (Toradol) 15 mg IVP Q6H PRN PRN Reason: Pain Stop: 02/09/18 12:32 Last Admin: 02/06/18 21:17 Dose: 15 mg Magnesium Hydroxide (Milk Of Magnesium) 30 ml PO DAILYPRN PRN PRN Reason: Constipation Mineral Oil/White Petrolatum (Eucerin Cream) 0 gm TOP BIDPRN PRN PRN Reason: Dry Skin Morphine Sulfate (Morphine) 4 mg SLOW IVP Q2H PRN PRN Reason: Severe Pain (7-10) Last Admin: 02/06/18 19:43 Dose: 4 mg Ondansetron HCl (Zofran Odt) 4 mg PO Q6H PRN PRN Reason: Nausea/Vomiting Ondansetron HCl (Zofran) 4 mg IVP Q6H PRN PRN Reason: Nausea/Vomiting Last Admin: 02/06/18 17:38 Dose: 4 mg Phenol (Chloraseptic [place] 180 Ml Bot) 0 ml PO PRN PRN PRN Reason: Sore Throat Saccharomyces Boulardii (Florastor) 250 mg PO DAILY CRISTINO Last Admin: 02/06/18 09:01 Dose: 250 mg Senna (Senokot) 2 tab PO HSPRN PRN PRN Reason: Constipation Sodium Chloride ([place] Nasal [place] 0.65%) 0 ml EA NARE QIDPRN PRN PRN Reason: Nasal Congestion Zolpidem Tartrate (Ambien) 5 mg PO HSPRN PRN PRN Reason: Insomnia
[2018-02-07] MEDS: Saccharomyces boulardii 250 MG CAP PO SCH (14:56)
[2018-02-07] MEDS: Folic Acid 1 MG TAB PO SCH (14:57)
[2018-02-07] MEDS: Cyanocobalamin (Vitamin B-12) 1,000 MCG TAB PO SCH (14:57)
[2018-02-07] MEDS: Famotidine 20 MG TAB PO SCH ×2 (14:57→20:15)
[2018-02-07] MEDS ORDERED: Potassium Chloride 20 MEQ TAB PO SCH (15:30)
[2018-02-07 15:36] LABS: Mean Corpuscular HGB CONC 34.1 g/dL (32.0-36.0); Mean Corpuscular Hemoglobin 33.8 pg (27.0-31.0); Mean Corpuscular Volume 99.4 fL (78.0-98.0); Mean Platelet Volume 8.8 fL (7.4-10.4); Platelet Count 230 thou/uL (130-400); RBC Distribution Width 17.4 % (11.5-14.5); Red Blood Cell (RBC) Count 1.75 mill/uL (4.20-5.40); White Blood Cell (WBC) Count 14.8 thou/uL (4.8-10.8)
[2018-02-07 15:38] LABS: Hemoglobin 5.9 g/dL (12.0-16.0)
[2018-02-07 15:39] LABS: Lymphocytes 13 % (21-51); Monocytes 12 % (0-10); Nucleated RBC 8 % (0)
[2018-02-07 15:40] LABS: Poikilocytosis MODERATE=16-30 cells (100X) (0-5/hpf); Polychromasia SLIGHT = 2-3 cells (100X) (0-2/hpf); Sickle Cells SLIGHT = 1-5 cells (100X) (None Seen); Target Cells SLIGHT = 2-5 cells (100X) (0-1/hpf)
[2018-02-07 15:41] LABS: MDiff Complete? YES; Neutrophil 75 % (42-75); PLT Morphology Comment Appears Adequate
[2018-02-07 15:42] LABS: Reticulocyte Count 17.4 % (0.5-1.5)
[2018-02-07] MEDS: cefTRIAXone\\ROCEPHIN 1 GM in Sodium Chloride 0.9% 100 ML IVPB SCH (16:05)
[2018-02-07] MEDS: HYDROcodone/Acetaminophen 10/325 mg Tablet PO PRN (16:20)
[2018-02-07] MEDS: Cefepime 2 GM in Sodium Chloride 0.9% 100 ML IVPB SCH (16:21)
--- NOTE | 2018-02-07 17:33 | RAD ---
CHEST 1 VIEW: Date: 02/07/18 HISTORY: Fever and cough. History of sickle cell disease. COMPARISON: 02/04/18. FINDINGS: Heart size is enlarged. Film is of less than optimal inspiration. No focal infiltrative process seen. IMPRESSION: Cardiomegaly. POS: [facility]
[2018-02-07] MEDS: Sodium Chloride 0.9% 20 ML ONE (20:14)
[2018-02-07] MEDS: Enoxaparin Sodium 40 MG/0.4 ML SYRINGE SC SCH (20:15)
[2018-02-07] MEDS: Hydroxyurea 500 MG CAP PO SCH (20:15)
[2018-02-07] MEDS: Acetaminophen 325 MG TAB PO PRN (20:31)
[2018-02-08] MEDS: Sodium Chloride 0.9% 1,000 ML IV SCH ×2 (00:52→16:00)
[2018-02-08] MEDS: Ketorolac Tromethamine 30 MG/ML VIAL IVP PRN (00:53)
[2018-02-08] MEDS: Acetaminophen 325 MG TAB PO PRN ×2 (00:53→11:36)
[2018-02-08] MEDS: Cefepime 2 GM in Sodium Chloride 0.9% 100 ML IVPB SCH ×2 (04:20→17:29)
[2018-02-08 06:23] LABS: ALT (SGPT) 24 U/L (8-55); AST (SGOT) 26 U/L (5-34); Albumin 3.2 g/dL (3.5-5.0); Alkaline Phosphatase 101 U/L (40-150); Anion Gap 11 mmol/L (10-20); BUN (Urea Nitrogen) 7 mg/dL (7.0-18.7); Bilirubin, Total 9.6 mg/dL (0.2-1.2); Calc. Creatinine Clearance 202 mL/min (70-130); Calcium 8.8 mg/dL (7.8-10.44); Carbon Dioxide 24 mmol/L (22-29); Chloride 108 mmol/L (98-107); Estimated GFR-MDRD Greater than 90; Globulin 3.3 g/dL (2.4-3.5); Glucose 101 mg/dL (70-105); Potassium 3.2 mmol/L (3.5-5.1); Protein, Total 6.5 g/dL (6.0-8.3); Sodium 140 mmol/L (136-145)
[2018-02-08 06:58] LABS: Band 1 % (5-11); Eosinophils 1 % (0-10); Hemoglobin 7.4 g/dL (12.0-16.0); Lymphocytes 17 % (21-51); MDiff Complete? YES; Mean Corpuscular HGB CONC 34.5 g/dL (32.0-36.0); Mean Corpuscular Hemoglobin 34.4 pg (27.0-31.0); Mean Corpuscular Volume 99.9 fL (78.0-98.0); Mean Platelet Volume 8.4 fL (7.4-10.4); Monocytes 12 % (0-10); Myelocyte 1 % (0-0); Neutrophil 68 % (42-75); Nucleated RBC 9 % (0); Platelet Count 281 thou/uL (130-400); Polychromasia MARKED = >4 cells (100X) (0-2/hpf); RBC Distribution Width 17.3 % (11.5-14.5); Red Blood Cell (RBC) Count 2.14 mill/uL (4.20-5.40); Sickle Cells MODERATE= 6-15 cells (100X) (None Seen); Target Cells SLIGHT = 2-5 cells (100X) (0-1/hpf); White Blood Cell (WBC) Count 15.6 thou/uL (4.8-10.8)
[2018-02-08] MEDS ORDERED: Potassium Chloride 20 MEQ TAB PO SCH ×2 (08:30→10:15)
[2018-02-08 09:30] LABS: Magnesium 1.8 mg/dL (1.6-2.6); Phosphorus 3.7 mg/dL (2.3-4.7)
[2018-02-08] MEDS: Saccharomyces boulardii 250 MG CAP PO SCH (09:44)
[2018-02-08] MEDS: Famotidine 20 MG TAB PO SCH ×2 (09:45→20:35)
[2018-02-08] MEDS: Folic Acid 1 MG TAB PO SCH (09:45)
[2018-02-08] MEDS: Hydroxyurea 500 MG CAP PO SCH ×2 (09:46→20:35)
[2018-02-08] MEDS: Cyanocobalamin (Vitamin B-12) 1,000 MCG TAB PO SCH (09:46)
[2018-02-08] MEDS ORDERED: Methyl Salicylate/Menthol 85 GM TUBE TOP PRN (10:26)
[2018-02-08 13:01] LABS: CKMB 0.2 ng/mL (0-6.6)
--- NOTE | 2018-02-08 13:45 | PDOC.PN ---
- Subjective Encounter Start Date: 02/08/18 Encounter Start Time: 10:30 Subjective: pt up in bed no complains - Objective Resuscitation Status: Resuscitation Status FULL:Full Resuscitation Vital Signs & Weight: Vital Signs (12 hours) Temp Pulse Resp BP Pulse Ox 02/08/18 11:49 102.0 F H 111 H 36 H 156/78 H 93 L 02/08/18 08:56 93 L 02/08/18 08:00 99.1 F 98 20 141/95 H 93 L 02/08/18 04:20 98.3 F 97 18 132/77 92 L Weight Weight 158 lb 11.725 oz I&O: 02/07/18 02/08/18 02/09/18 06:59 06:59 06:59 Intake Total 3000 3311 Balance 3000 3311 Result Diagrams: 02/08/18 05:37 02/08/18 05:37 Phys Exam - Physical Examination Neck: no nodes, no JVD, supple, full ROM Respiratory: no wheezing, no rales, no rhonchi, wheezing present, clear to auscultation bilateral Cardiovascular: RRR, no significant murmur, no rub, gallop, irregular Gastrointestinal: soft, non-tender, no distention, positive bowel sounds Dx/Plan (1) Sickle cell pain crisis Code(s): D57.00 - HB-SS DISEASE WITH CRISIS, UNSPECIFIED Status: Acute (2) Hyperbilirubinemia Code(s): E80.6 - OTHER DISORDERS OF BILIRUBIN METABOLISM Status: Chronic (3) Leukocytosis Code(s): D72.829 - ELEVATED WHITE BLOOD CELL COUNT, UNSPECIFIED Status: Acute (4) Fever Code(s): R50.9 - FEVER, UNSPECIFIED Status: Acute - Plan will continue pain meds -: pt on abx prophylaxis -: spoke with pt's mom about seeing hematology as outpatient. -: continue current tx * . Review of Systems - Review of Systems ENT: negative: Ear Pain, Ear Discharge, Nose Pain, Nose Discharge, Nose Congestion, Mouth Pain, Mouth Swelling, Throat Pain, Throat Swelling, Other Respiratory: negative: Cough, Dry, Shortness of Breath, Hemoptysis, SOB with Excertion, Pleuritic Pain, Sputum, Wheezing Cardiovascular: negative: chest pain, palpitations, orthopnea, paroxysmal nocturnal dyspnea, edema, light headedness, other Gastrointestinal: negative: Nausea, Vomiting, Abdominal Pain, Diarrhea, Constipation, Melena, Hematochezia, Other Musculoskeletal: Shoulder Pain, Arm Pain, Hand Pain, Leg Pain - Medications/Allergies Allergies/Adverse Reactions: Allergies Allergy/AdvReac Type Severity Reaction Status Date / Time No Known Drug Allergies Allergy Verified 08/04/15 11:12 Medications: Current Medications Acetaminophen (Tylenol) 650 mg PO Q4H PRN PRN Reason: Headache/Fever/Mild Pain (1-3) Last Admin: 02/08/18 11:36 Dose: 650 mg Hydrocodone Bitart/Acetaminophen ([place] 10/325) 1 tab PO Q4H PRN PRN Reason: Moderate Pain (4-6) Last Admin: 02/07/18 16:20 Dose: 1 tab Artificial Tears (Tears Naturale) 0 drop EA EYE PRN PRN PRN Reason: Dry Eyes Bisacodyl (Dulcolax) 10 mg PO DAILYPRN PRN PRN Reason: Constipation Last Admin: 02/06/18 15:22 Dose: 10 mg Bisacodyl (Dulcolax) 10 mg [place] DAILYPRN PRN PRN Reason: Constipation Calcium Carbonate (Tums) 1,000 mg PO Q4H PRN PRN Reason: Heartburn or Indigestion Cyanocobalamin (Vitamin B-12) 1,000 mcg PO DAILY [facility] Last Admin: 02/08/18 09:46 Dose: 1,000 mcg Diphenhydramine HCl (Benadryl) 25 mg IVP Q4H PRN PRN Reason: Itching Diphenhydramine HCl (Benadryl) 25 mg PO Q4H PRN PRN Reason: Itching Enoxaparin Sodium (Lovenox) 40 mg SC 2100 [facility] Last Admin: 02/07/18 20:15 Dose: 40 mg Famotidine (Pepcid) 20 mg PO BID [facility] Last Admin: 02/08/18 09:45 Dose: 20 mg Folic Acid (Folvite) 1 mg PO DAILY [facility] Last Admin: 02/08/18 09:45 Dose: 1 mg Guaifenesin (Robitussin Sf) 200 mg PO Q4H PRN PRN Reason: Cough Hydralazine HCl (Apresoline) 10 mg SLOW IVP Q4H PRN PRN Reason: Systolic BP > 180 Hydroxyurea (Hydrea) 500 mg PO BID [facility] Last Admin: 02/08/18 09:46 Dose: 500 mg Sodium Chloride (Normal Saline 0.9%) 1,000 mls @ 75 mls/hr IV .[id number] [facility] Last Admin: 02/08/18 00:52 Dose: 1,000 mls Cefepime HCl 2 gm/ Sodium (Chloride) 100 mls @ 200 mls/hr IVPB 0500,1700 [facility] Last Admin: 02/08/18 04:20 Dose: 100 mls Levofloxacin 500 mg/ Device 100 mls @ 100 mls/hr IVPB Q24HR@1600 [facility] Last Admin: 02/07/18 16:20 Dose: 100 mls Ketorolac Tromethamine (Toradol) 15 mg IVP Q6H PRN PRN Reason: Pain Stop: 02/09/18 12:32 Last Admin: 02/08/18 00:53 Dose: 15 mg Magnesium Hydroxide (Milk Of Magnesium) 30 ml PO DAILYPRN PRN PRN Reason: Constipation Menthol/Methyl Salicylate (Muscle Rub Cream ([place]eng[place])) 120 gm TOP PRN PRN PRN Reason: Muscle Pain Last Admin: 02/08/18 10:46 Dose: 120 gm Mineral Oil/White Petrolatum (Eucerin Cream) 0 gm TOP BIDPRN PRN PRN Reason: Dry Skin Morphine Sulfate (Morphine) 4 mg SLOW IVP Q2H PRN PRN Reason: Severe Pain (7-10) Last Admin: 02/06/18 19:43 Dose: 4 mg Ondansetron HCl (Zofran Odt) 4 mg PO Q6H PRN PRN Reason: Nausea/Vomiting Ondansetron HCl (Zofran) 4 mg IVP Q6H PRN PRN Reason: Nausea/Vomiting Last Admin: 02/06/18 17:38 Dose: 4 mg Phenol (Chloraseptic [place] 180 Ml Bot) 0 ml PO PRN PRN PRN Reason: Sore Throat Saccharomyces Boulardii (Florastor) 250 mg PO DAILY [facility] Last Admin: 02/08/18 09:44 Dose: 250 mg Senna (Senokot) 2 tab PO HSPRN PRN PRN Reason: Constipation Sodium Chloride ([place] Nasal [place] 0.65%) 0 ml EA NARE QIDPRN PRN PRN Reason: Nasal Congestion Zolpidem Tartrate (Ambien) 5 mg PO HSPRN PRN PRN Reason: Insomnia
[2018-02-08] MEDS: HYDROcodone/Acetaminophen 10/325 mg Tablet PO PRN (17:01)
[2018-02-08] MEDS: Enoxaparin Sodium 40 MG/0.4 ML SYRINGE SC SCH (20:35)
[2018-02-09] MEDS: Acetaminophen 325 MG TAB PO PRN (01:26)
[2018-02-09] MEDS: Ketorolac Tromethamine 30 MG/ML VIAL IVP PRN (01:30)
[2018-02-09] MEDS: Cefepime 2 GM in Sodium Chloride 0.9% 100 ML IVPB SCH (05:34)
[2018-02-09] MEDS: Sodium Chloride 0.9% 1,000 ML IV SCH (05:41)
[2018-02-09] MEDS: Hydroxyurea 500 MG CAP PO SCH (09:45)
[2018-02-09] MEDS: Famotidine 20 MG TAB PO SCH (09:46)
[2018-02-09] MEDS: Cyanocobalamin (Vitamin B-12) 1,000 MCG TAB PO SCH (09:46)
[2018-02-09] MEDS: Saccharomyces boulardii 250 MG CAP PO SCH (09:46)
[2018-02-09] MEDS: Folic Acid 1 MG TAB PO SCH (09:46)
[2018-02-09 11:39] VITALS: BP 135/78; TEMP 99.4
[2018-02-09 12:07] LABS: ALT (SGPT) 25 U/L (8-55); AST (SGOT) 29 U/L (5-34); Albumin 3.3 g/dL (3.5-5.0); Alkaline Phosphatase 109 U/L (40-150); Anion Gap 11 mmol/L (10-20); BUN (Urea Nitrogen) 7 mg/dL (7.0-18.7); Calc. Creatinine Clearance 202 mL/min (70-130); Carbon Dioxide 24 mmol/L (22-29); Chloride 106 mmol/L (98-107); Estimated GFR-MDRD Greater than 90; Globulin 3.7 g/dL (2.4-3.5); Glucose 111 mg/dL (70-105); Potassium 3.1 mmol/L (3.5-5.1); Sodium 138 mmol/L (136-145)
[2018-02-09 12:29] LABS: Band 1 % (5-11); Hemoglobin 7.8 g/dL (12.0-16.0); Lymphocytes 22 % (21-51); MDiff Complete? YES; Mean Corpuscular HGB CONC 32.9 g/dL (32.0-36.0); Mean Corpuscular Hemoglobin 33.1 pg (27.0-31.0); Mean Platelet Volume 8.7 fL (7.4-10.4); Monocytes 6 % (0-10); Neutrophil 71 % (42-75); Nucleated RBC 12 % (0); Platelet Count 285 thou/uL (130-400); Polychromasia SLIGHT = 2-3 cells (100X) (0-2/hpf); RBC Distribution Width 18.7 % (11.5-14.5); Red Blood Cell (RBC) Count 2.36 mill/uL (4.20-5.40); Sickle Cells MODERATE= 6-15 cells (100X) (None Seen); Target Cells SLIGHT = 2-5 cells (100X) (0-1/hpf); White Blood Cell (WBC) Count 12.3 thou/uL (4.8-10.8)
--- NOTE | 2018-02-09 22:14 | DIS ---
DATE OF ADMISSION: 02/04/2018 DATE OF DISCHARGE: 02/09/2018 DISCHARGE DIAGNOSES: 1. Sickle cell crisis. 2. Hypokalemia. 3. Fever. 4. Possible hemolytic anemia, most likely secondary to sickle cell crisis. 5. Elevated bilirubin. HOSPITAL COURSE: Patient is a very pleasant 22-year-old female who initially presented to the hospit ga on 02/04/2018 with complaints of painful crisis, generalized body pains which she normally gets wo rse during her menstrual cycle. Patient was found to have low hemoglobin of 5.5. She was transfused 1 unit of PRBC and her hemoglobin went up to 7 to 7.9. Patient was put on IV hydration, she was als o given pain pills. Her symptoms continued to improve. She was able to tolerate p.o. diet and she r equested to be discharged home. Initially, hospital course she did have a mild fever of 102.0. Urin e did not indicate any acute abnormalities. A chest x-ray was normal. Blood cultures so far has bee n negative for more than 48 hours. Patient initially will put on preventative antibiotics, which wer e discontinued on her discharge. PHYSICAL EXAMINATION: VITAL SIGNS: Shows temperature 99.4, 86, 20, 94% on room air, 135/78. GENERAL: She is awake, alert, oriented x3, does not appear in distress. CARDIOVASCULAR: S1, S2 present. No murmurs, rubs, or gallops. ABDOMEN: Soft, nontender. Bowel sounds are present x2. EXTREMITIES: No edema. Pedal pulse x2. I did see extensively with patient and patient's mother in regard to following up with labor relations analyst juno roldan she is not on hydroxyurea as an outpatient. Patient's mother stated that she has been trying to get patient Medicaid and disability; however, is having a tough time. We will start her, she has be en receiving hydroxyurea while in the hospital, we will continue that. Her home medications will be as of the following: Folic acid 1 p.o. daily, Florastor 250 daily, potassium chloride 10 mEq daily f or only 5 days, Levaquin 500 mg p.o. daily only for 5 days, hydroxyurea 500 mg b.i.d. and vitamin B12 of 1000 mcg p.o. daily. She was also advised to eat bananas every day due to her low potassium. I will recheck her blood level in the next week. Also, I did tell her to follow up with her primary to get lab drawn due to her being on hydroxyurea and I did let the nurse know to tell the patient that on good prescription. Hydroxyurea is only about 30 dollars.
== END 2018-02-09 14:29 | disposition home or self-care (01) | DRG 812 ==
LOC: ERS 06:57 → 3SE 12:01
PROVIDERS: ADMIT Internal Medicine; ATTEND Internal Medicine
PROC: 30233N1 Transfusion of Nonautologous Red Blood Cells into Peripheral Vein, Percutaneous Approach (ICD-10-PCS; principal; 2018-02-07)
DX: D57.00 Hb-SS disease with crisis, unspecified (principal); R65.10 Systemic inflammatory response syndrome (SIRS) of non-infectious origin without acute organ dysfunction; D72.829 Elevated white blood cell count, unspecified; D69.6 Thrombocytopenia, unspecified; E87.6 Hypokalemia; E80.6 Other disorders of bilirubin metabolism
CPT/HCPCS: 36415; 36430; 71045; 80053; 81003; 81015; 82550; 82553; 83735; 84100; 84703; 85007; 85025; 85027; 85046; 86850; 86900; 86901; 87040; 87086; 96361; 96365; 96367; 96375; 96376; J0456; J0692; J0696; J1650; J1885; J1956; J2270; J2405; J7050; P9016

== ENCOUNTER 2018-04-18 09:28 | Observation (INO) | payer OTHER, SELFPAY ==
[2018-04-18] MEDS ORDERED: HYDROmorphone 0.5 MG/0.5 ML SYRINGE ONE ×3 (10:37→12:46)
[2018-04-18] MEDS ORDERED: Ondansetron PF 4 MG/2 ML Vial ONE ×2 (10:45→13:46)
[2018-04-18 11:04] LABS: Reticulocyte Count 12.1 % (0.5-1.5)
--- NOTE | 2018-04-18 11:18 | RAD ---
CHEST 1 VIEW: COMPARISON: 02/07/2018, 02/04/2018. HISTORY: Sickle cell crisis. Pain. FINDINGS: Enlarged cardiac silhouette. The pulmonary vessels and hilum are normal. Costophrenic angles are cl ear. Possible infiltrate in the right lower lobe. No pneumothorax or osseous abnormality. IMPRESSION: Right lower lobe infiltrate. Continued surveillance to ensure resolution is recommended. POS: [facility]
[2018-04-18 11:19] LABS: Hemoglobin 8.9 g/dL (12.0-16.0); Mean Corpuscular HGB CONC 34.8 g/dL (32.0-36.0); Mean Corpuscular Hemoglobin 35.4 pg (27.0-31.0); Platelet Count 400 thou/uL (130-400); RBC Distribution Width 17.9 % (11.5-14.5); Red Blood Cell (RBC) Count 2.51 mill/uL (4.20-5.40); White Blood Cell (WBC) Count 12.3 thou/uL (4.8-10.8)
[2018-04-18 11:22] LABS: Band 6 % (5-11); Eosinophils 3 % (0-10); Lymphocytes 22 % (21-51); MDiff Complete? YES; Metamyelocyte 2 % (0-0); Monocytes 8 % (0-10); Myelocyte 1 % (0-0); Neutrophil 54 % (42-75); Nucleated RBC 3 % (0); PLT Morphology Comment Appears Adequate; Polychromasia MARKED = >4 cells (100X) (0-2/hpf); Reactive Lymphocytes 3 % (0-10); Sickle Cells MODERATE= 6-15 cells (100X) (None Seen)
[2018-04-18 11:27] LABS: ALT (SGPT) 20 U/L (8-55); AST (SGOT) 33 U/L (5-34); Albumin 4.2 g/dL (3.5-5.0); Alkaline Phosphatase 137 U/L (40-150); Anion Gap 13 mmol/L (10-20); BUN (Urea Nitrogen) 8 mg/dL (7.0-18.7); Bilirubin, Total 6.2 mg/dL (0.2-1.2); Calc. Creatinine Clearance 0 mL/min (70-130); Calcium 9.5 mg/dL (7.8-10.44); Carbon Dioxide 26 mmol/L (22-29); Chloride 105 mmol/L (98-107); Estimated GFR-MDRD Greater than 90; Glucose 86 mg/dL (70-105); Potassium 3.4 mmol/L (3.5-5.1); Protein, Total 8.2 g/dL (6.0-8.3); Sodium 141 mmol/L (136-145)
[2018-04-18] MEDS ORDERED: cefTRIAXone\\ROCEPHIN 2 GM VIAL ONE (13:35)
[2018-04-18] MEDS ORDERED: Azithromycin 500 MG VIAL ONE (14:24)
--- NOTE | 2018-04-18 14:56 | PDOC.FPRHP ---
- History of Present Illness Chief Complaint: sickle cell pain History of Present Illness: The patient is a 22YO AAF w/ a PMH significant for sickle cell anemia who presented to the ED with a CC of chest, back and arm pain that began this morning around 06:50. The patients reports that the pain actually woke her up from sleep this AM and she felt pain in her lower back, the center of her chest , and her right forearm. She says she tried taking 800mg of ibuprofen and waited about 1 hour and felt no relief. She then tried taking 1g of PO tylenol and waited another hour and a half but still had no relief so she decided to come to the ED. She says she recently visited her best friend's aunt in the hospital who was sick with pneumonia but has otherwise has no sick contacts. She denies any associated SOB, wheezing, syncope or fever/chills. She says her appetite has been ok as well. She does endorse an associated dry cough 2/2 an itchy throat as well as some nausea and vomiting. She denies any abdominal pain or diarrhea. ED Course: ED: zofran 4mg IV x2 Rocephin 2g IV Azithromycin 500mg IV Dilaudid 0.5mg x 3 2L NS Phenergan 12.5mg IV - Allergies/Adverse Reactions Allergies Allergy/AdvReac Type Severity Reaction Status Date / Time No Known Drug Allergies Allergy Verified 08/04/15 11:12 - Home Medications Medication Instructions Recorded Confirmed Type Folic Acid [Folvite] 1 mg PO DAILY 02/06/15 02/04/18 History HYDROcodone Bit/APAP 10/325 [[place]] 1 - 2 tab PO Q4HR PRN 08/07/15 02/04/18 History Cyanocobalamin (Vitamin B-12) 1,000 mcg PO DAILY #30 tab 02/09/18 Rx [Vitamin B-12] Hydroxyurea [Hydrea] 500 mg PO BID #60 cap 02/09/18 Rx Levofloxacin [Levaquin] 500 mg PO DAILY #5 tab 02/09/18 Rx Potassium Chloride 10 meq PO DAILY #5 tab 02/09/18 Rx Saccharomyces boulardii [Florastor] 250 mg PO DAILY #5 cap 02/09/18 Rx - History PMHx: sickle cell anemia PSHx: cholecystectomy & umbilical hernia repair FHx: Maternal Aunt and uncle- sickle cell anemia Social: No tobacco or drug use. Rare EtOH use. Lives at home with her mom in [place]. Work at [employer]. - Review of Systems General: denies: fever/chills, weight/appetite/sleep changes Eyes: reports: other (no eye itching). denies: eye pain ENT: reports: other (no sore throat). denies: nasal congestion Respiratory: reports: cough. denies: congestion, shortness of breath Cardiovascular: denies: chest pain, edema Gastrointestinal: reports: nausea, vomiting, abdominal pain. denies: diarrhea Genitourinary: reports: other (no hematuria). denies: dysuria Skin: denies: rashes, itching Musculoskeletal: reports: pain, tenderness. denies: swelling Neurological: reports: weakness. denies: numbness, syncope Psychological: denies: anxiety, depression - Vital signs BP: 150/108 HR: 86 RR: 16 Tmax: 98.2F Pox: 99% on RA Wt: 77.56 kg - Physical Exam Constitutional: awake, alert and oriented, well developed, other (mild distress 2/2 pain) HEENT: normocephalic and atraumatic, PERRLA, conjunctiva clear, no scleral icterus, grossly normal vision, grossly normal hearing, MMM, oropharynx clear Neck: supple, FROM Chest: no-tender to palpation Heart: RRR, normal S1/S2, pulses present, no edema Lungs: CTAB, no respiratory distress, good air movement, no rales/rhonchi, no wheezing Abdomen: soft, bowel sounds present, no masses/distention, other (TTP throughout but no guarding or rebound tenderness noted) Musculoskeletal: normal structure, ROM grossly normal Neurological: no focal deficit, CN II-XII intact Skin: no rash/lesions, good turgor, no jaundice Heme/Lymphatic: no unusual bruising or bleeding, no purpura Psychiatric: normal mood and affect, good judgment and insight, intact recent and remote memory FMR H&P: Results - Labs Result Diagrams: 04/18/18 10:50 04/18/18 10:50 Lab results: WBC 12.3 thou/uL (4.8-10.8) H 04/18/18 10:50 Hgb 8.9 g/dL (12.0-16.0) L 04/18/18 10:50 Hct 25.5 % (36.0-47.0) L 04/18/18 10:50 MCV 102.0 fL (78.0-98.0) H 04/18/18 10:50 Plt Count 400 thou/uL (130-400) 04/18/18 10:50 Band Neuts % (Manual) 6 % (5-11) 04/18/18 10:50 Sodium 141 mmol/L (136-145) 04/18/18 10:50 Potassium 3.4 mmol/L (3.5-5.1) L 04/18/18 10:50 Chloride 105 mmol/L (98-107) 04/18/18 10:50 Carbon Dioxide 26 mmol/L (22-29) 04/18/18 10:50 BUN 8 mg/dL (7.0-18.7) 04/18/18 10:50 Creatinine 0.54 mg/dL (0.6-1.1) L 04/18/18 10:50 Glucose 86 mg/dL (70-105) 04/18/18 10:50 Calcium 9.5 mg/dL (7.8-10.44) 04/18/18 10:50 Total Bilirubin 6.2 mg/dL (0.2-1.2) H 04/18/18 10:50 AST 33 U/L (5-34) 04/18/18 10:50 ALT 20 U/L (8-55) 04/18/18 10:50 Alkaline Phosphatase 137 U/L (40-150) 04/18/18 10:50 Serum Total Protein 8.2 g/dL (6.0-8.3) 04/18/18 10:50 Albumin 4.2 g/dL (3.5-5.0) 04/18/18 10:50 - Radiology Interpretation Chest x-ray Status: image reviewed by me, report reviewed by me (Read by radiology as possible RLL infiltrate.) FMR H&P: A/P - Problem List (1) Sickle cell pain crisis Current Visit: No Status: Acute Code(s): D57.00 - HB-SS DISEASE WITH CRISIS , UNSPECIFIED (2) Hypokalemia Current Visit: No Status: Acute Code(s): E87.6 - HYPOKALEMIA (3) Leukocytosis Current Visit: No Status: Acute Code(s): D72.829 - ELEVATED WHITE BLOOD CELL COUNT, UNSPECIFIED Qualifiers: Leukocytosis type: leukemoid reaction Qualified Code(s): D72.823 - Leukemoid reaction (4) Sickle cell anemia Current Visit: No Status: Chronic Code(s): D57.1 - SICKLE-CELL DISEASE WITHOUT CRISIS - Plan 22YOF w/ sickle cell anemia who presented to the ED with a CC of right arm, low back, and central chest pain 2/2 an acute sickle cell pain crisis. Sickle Cell pain crisis: - s/p dilaudid 0.5mg x3 in the ED. Last dose around 13:00. - Will start on CRISTINO IV morphine 8mg Q4H w/ PO [place] 7.5/325 PRN Q6H for breakthrough pain. Will escalate PRN for adequate pain control. - s/p 2L of NS in the ED as well. Will continue mIVFs with LR @ 120mL/hr as patient is nauseous and vomiting but does not appear to be volume depleted on exam. Will de-escalate as N/V resolves. - Will obtain B/L LE dopplers and RUE doppler to r/o any VTE that could be precipitating patient's pain crisis. - Will continue PRN zofran and phenergan for nausea and vomiting. Leukocytosis: - WBC slightly elevated at 12.3 but no bandemia. Patient has been afebrile with a normal HR since presentation. - Likely leukemoid reaction 2/2 pain crisis. - CXR read as possible RLL PNA but patient does not even meet SIRS criteria and has no respiratory symptoms other than reporting a dry, non-productive cough. s/ p IV antibiotics in the ED. Procal pending. Will hold off on continuing antibiotics for now and resume based on procal. Blood cultures pending. Hyperbilirubinemia: - Total bili elevated at 6.2. Likely 2/2 sickle cell hemolysis. Will give IVFs overnight and continue to monitor w/ QD CMPs. Sickle Cell Anemia: - Aware, Hgb of 8.9 on admission. ANC of 7.3 suggestive of adequate bone marrow compensation. Per chart review this is around patient's baseline. - Will transfuse PRN if it drops > 2 points below this. Will continue to monitor w/ QD bloodwork. - Will resume home hydroxurea. HTN: - BP elevated at 150/108 on exam. - Likely 2/2 pain. Will continue to monitor and treat pain crisis as described above. - Will treat PRN. Hypokalemia: - Potassium of 3.4 on presentation. Per chart review patient was discharged on PO potassium for persistent hypokalemia. - Will resume 10mEq QD dosing and continue to monitor w/ QD bloodwork. FMR H&P: Upper Level - Pertinent history 22 yo female here for sickle cell crisis pain. She has a history of sickle cell with recent episodes of crises a couple weeks ago and was treated at the [facility]. Pain woke her up from sleep this morning. Pain in lower back, chest, and right arm. Tylenol and ibuprofen provided no relief. Denies SOB, fever, wheezing, anorexia. Endorses dry cough and n/v. In ER patient received Zofran, rocephin, azithromycin, diludid 0.5mg x3, NS 2L, Phenergan. - Pertinent findings H.9 WBC: 12.3 K:3.4 Tbili: 6.5 CXR: read says R lower lobe PNA, but review with myself,f Dr. Rogel, Dr Suarez did not reveal any infiltrates 150/108 HR: 87 TEMP: 98.0 RR: 16 97% on RA GEN: AAOx3, mild distress CARD:RRR, no mgr PULM:CTAB ABD: soft, BSx4 EXT: no cyanosis or edema, tenderness noted in both LE - Plan Date/Time: 04/18/18 1456 IReilly DO, have evaluated this patient and agree with findings/plan as outlined by sports management internship resident. Pertinent changes/additions are listed here. #sickle cell crisis -morphine 8mg q4hr with prn morphine available -received 2L NS in ER, will continue with maintanence LR, does not appear fluid down at this time -retic index is appropriate response -low suspicion for DVT based on exam and history, but will get US to rule out completely #sickle cell anemia -continue to monitor and transfuse if below 7.0. #hyperbili -suspect due to hemolysis 2/2 sickle cell -Retic index appropriate #HTN -treat with PRN meds and reevaluate when pain crisis resolves #hypokalemia -continue with home regimen
[2018-04-18] MEDS ORDERED: Promethazine HCl 25 MG/ML VIAL ONE (15:30)
[2018-04-18] MEDS ORDERED: Sodium Chloride 0.9% 1,000 ML IV SCH (17:26)
[2018-04-18] MEDS ORDERED: Morphine 2 MG/ML SYRINGE SLOW IVP PRN (17:26)
[2018-04-18] MEDS ORDERED: Ondansetron PF 4 MG/2 ML Vial IVP PRN ×2 (17:26→23:51)
[2018-04-18] MEDS ORDERED: Ondansetron ODT 4 MG TAB SL PRN (17:26)
[2018-04-18] MEDS ORDERED: HYDROcodone/Acetaminophen 7.5/325 mg Tablet PO PRN (17:30)
[2018-04-18] MEDS ORDERED: Promethazine HCl 25 MG/ML VIAL IM/IV PRN (17:30)
[2018-04-18] MEDS ORDERED: Senokot 8.6 MG TAB PO SCH (17:30)
[2018-04-18] MEDS ORDERED: Ondansetron ODT 4 MG TAB PO PRN (17:30)
[2018-04-18] MEDS ORDERED: Lactated Ringer's 1,000 ML IV SCH (17:30)
[2018-04-18 17:43] VITALS: BMI 26.2
--- NOTE | 2018-04-18 18:13 | ULT ---
BILATERAL LOWER EXTREMITY VENOUS DUPLEX EXAM: 04/18/18 HISTORY: Bilateral leg pain. History of sickle cell. Real time color doppler evaluation of right and left lower extremities were performed from groin to c long-term. This includes evaluation of the common femoral, superficial and profunda femoral, saphenous, pop liteal, and posterior tibial veins which shows no evidence of DVT. There is normal compressibility an d augmentation. IMPRESSION: No evidence of DVT of either lower extremity. POS: [facility]
[2018-04-18] MEDS: Lactated Ringer's 1,000 ML IV SCH ×2 (18:23→23:40)
--- NOTE | 2018-04-18 18:24 | ULT ---
RIGHT UPPER EXTREMITY VENOUS DUPLEX EXAM: 04/18/18 HISTORY: Right upper extremity pain and swelling. History of sickle cell. Real time color doppler evaluation of the right upper extremity was performed. This includes evaluati on of internal jugular, subclavian, axillary, brachial, basilic and cephalic veins. This shows a abbott nt deep venous system with normal compressibility and augmentation. Color flow is inadvertently not i ncluded on the brachial but after discussion with technologist, good flow was seen in all veins. IMPRESSION: No evidence of DVT of the right upper extremity. POS: [facility]
[2018-04-18 18:47] LABS: Pregnancy Test - Urine (BHCG) Negative (Negative); Pregu Control Background? CLEAR/WHITE (CLR/WHITE); Pregu Control Bar Appear? YES (CONTROL BAR); Specific Gravity 1.007 (1.002-1.036)
[2018-04-18] MEDS: Morphine 4 MG/ML VIAL SLOW IVP PRN ×3 (20:23→23:39)
[2018-04-18] MEDS: Hydroxyurea 500 MG CAP PO SCH (20:38)
[2018-04-18] MEDS ORDERED: Morphine 4 MG/ML VIAL SLOW IVP SCH ×2 (21:00→22:00)
[2018-04-18] MEDS ORDERED: Communication Order-Pharmacy FS SCH (23:45)
[2018-04-18] MEDS ORDERED: Zolpidem Tartrate 5 MG TAB PO PRN (23:51)
[2018-04-18] MEDS ORDERED: diphenhydrAMINE 50 MG/ML VIAL IM PRN (23:51)
[2018-04-18] MEDS ORDERED: Naloxone HCl 0.4 mg/ml Vial IV PRN (23:51)
[2018-04-18] MEDS ORDERED: Promethazine HCl 25 MG/ML VIAL IM PRN (23:51)
[2018-04-18] MEDS ORDERED: diphenhydrAMINE 25 MG CAP PO PRN (23:51)
[2018-04-18] MEDS ORDERED: diphenhydrAMINE 50 MG/ML VIAL IVP PRN (23:51)
[2018-04-19] MEDS: HYDROmorphone 10 mg/100 ml CADD IVPB PRN (01:07)
[2018-04-19] MEDS ORDERED: Morphine 4 MG/ML VIAL SLOW IVP SCH (02:00)
[2018-04-19] MEDS: Lactated Ringer's 1,000 ML IV SCH ×3 (05:31→17:10)
[2018-04-19 05:38] LABS: ALT (SGPT) 18 U/L (8-55); AST (SGOT) 31 U/L (5-34); Albumin 3.4 g/dL (3.5-5.0); Alkaline Phosphatase 90 U/L (40-150); Anion Gap 11 mmol/L (10-20); BUN (Urea Nitrogen) 6 mg/dL (7.0-18.7); Bilirubin, Total 3.6 mg/dL (0.2-1.2); Calc. Creatinine Clearance 201 mL/min (70-130); Calcium 8.3 mg/dL (7.8-10.44); Carbon Dioxide 26 mmol/L (22-29); Chloride 104 mmol/L (98-107); Estimated GFR-MDRD Greater than 90; Globulin 3.1 g/dL (2.4-3.5); Glucose 114 mg/dL (70-105); Potassium 3.5 mmol/L (3.5-5.1); Protein, Total 6.5 g/dL (6.0-8.3); Sodium 137 mmol/L (136-145)
--- NOTE | 2018-04-19 06:00 | PDOC.FM ---
- Subjective Subjective: Patient required a pain pump for pain control overnight. Patient reports pain to be improved this morning. Denies any chest pain, SOB, N/V, or abdominal pain. - Objective MAR Reviewed: Yes Vital Signs & Weight: Vital Signs (12 hours) Temp Pulse Resp BP BP Pulse Ox 04/19/18 04:35 80 18 109/57 L 99 04/19/18 01:50 84 20 115/57 L 97 04/19/18 01:35 100.8 F H 81 16 120/61 99 04/18/18 23:30 100.9 F H 85 16 118/55 L 98 04/18/18 19:25 98.7 F 83 16 120/63 100 Weight Weight 75.795 kg I&O: 04/17/18 04/18/18 04/19/18 06:59 06:59 06:59 Intake Total 2600 Output Total 600 Balance 1999 Result Diagrams: 04/19/18 05:03 04/19/18 05:03 Radiology Reviewed by me: Yes (No DVTs in B/L LEs of RUE) Phys Exam - Physical Examination Constitutional: NAD HEENT: moist MMs Neck: supple, full ROM Respiratory: no wheezing, no rales, no rhonchi, clear to auscultation bilateral Cardiovascular: RRR, no significant murmur Gastrointestinal: soft, non-tender, no distention, positive bowel sounds Musculoskeletal: no edema, pulses present TTP in B/L LEs Neurological: non-focal, moves all 4 limbs Psychiatric: normal affect, A&O x 3 Skin: no rash, normal turgor Dx/Plan (1) Sickle cell pain crisis Code(s): D57.00 - HB-SS DISEASE WITH CRISIS, UNSPECIFIED Status: Acute (2) Hypokalemia Code(s): E87.6 - HYPOKALEMIA Status: Acute (3) Leukocytosis Code(s): D72.829 - ELEVATED WHITE BLOOD CELL COUNT, UNSPECIFIED Status: Acute Qualifiers: Leukocytosis type: leukemoid reaction Qualified Code(s): D72.823 - Leukemoid reaction (4) Sickle cell anemia Code(s): D57.1 - SICKLE-CELL DISEASE WITHOUT CRISIS Status: Chronic - Plan Plan: 22YOF w/ sickle cell anemia who presented to the ED with a CC of right arm, low back, and central chest pain 2/2 an acute sickle cell pain crisis. Sickle Cell pain crisis: - Will attempt to wean off dilaudid pain pump as tolerated by the patient. - Will wean IVFs as tolerated by the patient as well. - Dopplers of legs and RUE negative for any DVT but patient did fever overnight up to 100.9F. Will add PRN motrin for fever. - Will continue PRN zofran and phenergan for nausea and vomiting. Leukocytosis: - WBC slightly elevated at 12.3 on presentation and up to 15 this AM. Patient did fever overnight overnight as well but has a normal HR. - Likely leukemoid reaction 2/2 pain crisis. - Will trend procal and consider initiating antitiotic therapy as patient now meets SIRS criteria. - Blood cultures pending & urine culture ordered this AM. Hyperbilirubinemia: - Total bili down to 3.6 this AM. Likely 2/2 sickle cell hemolysis. Will give IVFs overnight and continue to monitor w/ QD CMPs. Sickle Cell Anemia: - Aware, Hgb of 8.9 on admission & down to 8.0 this AM. - Will transfuse PRN if it drops > 2 points below this. Will continue to monitor w/ QD bloodwork. - Will resume home hydroxurea. HTN: - Resolved, likely due to better pain control and from the actual hydromorphone itself. - Will continue to monitor. Hypokalemia: - Resolved as Potassium is up to 3.5 this AM. - Will continue 10mEq PO QD dosing and continue to monitor w/ QD bloodwork. Addendum - Attending - Attending Attestation Date/Time: 04/19/18 1157 I personally evaluated the patient and discussed the management with Dr. Rogel I agree with the History, Examination, Assessment and Plan documented above with any addition or exceptions noted below- Patient states is under better control with TOE CLOSING MACHINE TENDER pump. Still having pain in legs. (+) cough. Tm 100.9 VSS. A/P: 1) Sickle cell crisis- continue IVF, O2, TOE CLOSING MACHINE TENDER. Monitor H/H. 2) Fever- ? infiltrate on X-ray; repeat CXR ordered for today. Received Rocephin and zithromax yesterday. Blood cultures pending; Flu swab pending. Will check U/A and culture. 3) Disposition- per patient and family, patient has been seen at [facility]. Will transfer care to [facility] service tomorrow.
[2018-04-19 07:02] LABS: Band 1 % (5-11); Eosinophils 1 % (0-10); Lymphocytes 13 % (21-51); MDiff Complete? YES; Mean Corpuscular HGB CONC 36.4 g/dL (32.0-36.0); Mean Corpuscular Hemoglobin 36.7 pg (27.0-31.0); Mean Platelet Volume 7.8 fL (7.4-10.4); Monocytes 14 % (0-10); Neutrophil 71 % (42-75); Nucleated RBC 10 % (0); Platelet Count 323 thou/uL (130-400); Polychromasia MODERATE = 3-4 cells (100X) (0-2/hpf); RBC Distribution Width 17.7 % (11.5-14.5); Red Blood Cell (RBC) Count 2.18 mill/uL (4.20-5.40); Sickle Cells SLIGHT = 1-5 cells (100X) (None Seen); Target Cells SLIGHT = 2-5 cells (100X) (0-1/hpf); White Blood Cell (WBC) Count 15.6 thou/uL (4.8-10.8)
--- NOTE | 2018-04-19 09:55 | PDOC.EVN ---
Event Note - Event Note Event Note: Spoke with patient this morning and determined that she is seen at [facility] and her most recent visit there was 04/14/18. Spoke with Sound Provider on observation unit at ~09:30 today who accepted the patient verbally. Will transition care to [facility] for remainder of the patient's hospital stay.
[2018-04-19] MEDS: Polyethylene Glycol 3350 17 GM Packet PO SCH (09:58)
[2018-04-19] MEDS: Potassium Chloride 10 MEQ TAB PO SCH (09:58)
[2018-04-19] MEDS: Enoxaparin Sodium 40 MG/0.4 ML SYRINGE SC SCH (09:58)
[2018-04-19] MEDS: Hydroxyurea 500 MG CAP PO SCH ×2 (09:58→21:08)
[2018-04-19] MEDS ORDERED: Menthol/Camphor Lotion 222 ml Bottle TOP PRN (11:31)
[2018-04-19 11:35] LABS: Bilirubin Negative (Negative); Blood, Urine Small (Negative); Clarity CLEAR (Clear); Glucose, Urine (Dipstick) Negative (Negative); Leukocyte Negative (Negative); Nitrite Negative (Negative); Protein, Urine (Dipstick) 30 mg/dL (Neg-Trace); Specific Gravity, Urine 1.007 (1.002-1.036)
[2018-04-19 11:38] LABS: Bacteria/HPF None Seen HPF (None Seen); Hyaline Casts/LPF 0-3 HYALINE CAST LPF (0-3 Hyaline); RBC/HPF 0-3 HPF (0-3); Squamous Epithelial 0-3 HPF (0-3); WBC/HPF None Seen HPF (0-3)
[2018-04-19] MEDS: Ibuprofen 600 MG TAB PO PRN ×2 (11:47→21:08)
--- NOTE | 2018-04-19 13:55 | RAD ---
PA AND LATERAL VIEWS CHEST: Date: 04/19/18 HISTORY: Sickle cell crisis, probable right lower lobe infiltrate. FINDINGS: The heart size is normal. The lungs are well expanded without focal areas of consolidation, pneumotho rax, or pleural effusions. No acute osseous abnormalities are seen. IMPRESSION: No radiographic evidence of acute cardiopulmonary process. POS: [facility]
[2018-04-19] MEDS ORDERED: Methyl Salicylate/Menthol 85 GM TUBE TOP PRN (21:14)
[2018-04-20] MEDS: Lactated Ringer's 1,000 ML IV SCH ×2 (00:02→06:07)
[2018-04-20] MEDS: HYDROmorphone 10 mg/100 ml CADD IVPB PRN (05:59)
[2018-04-20 06:28] LABS: ALT (SGPT) 28 U/L (8-55); AST (SGOT) 36 U/L (5-34); Albumin 3.4 g/dL (3.5-5.0); Alkaline Phosphatase 119 U/L (40-150); Anion Gap 14 mmol/L (10-20); BUN (Urea Nitrogen) 5 mg/dL (7.0-18.7); Bilirubin, Total 8.5 mg/dL (0.2-1.2); Calc. Creatinine Clearance 222 mL/min (70-130); Calcium 9.1 mg/dL (7.8-10.44); Carbon Dioxide 26 mmol/L (22-29); Chloride 106 mmol/L (98-107); Estimated GFR-MDRD Greater than 90; Globulin 3.5 g/dL (2.4-3.5); Glucose 84 mg/dL (70-105); Potassium 3.6 mmol/L (3.5-5.1); Protein, Total 6.9 g/dL (6.0-8.3); Sodium 142 mmol/L (136-145)
[2018-04-20 06:57] LABS: Anisocytosis SLIGHT = 6-15 cells (100X) (0-5/hpf); Band 4 % (5-11); Hemoglobin 8.1 g/dL (12.0-16.0); Lymphocytes 25 % (21-51); MDiff Complete? YES; Mean Corpuscular HGB CONC 35.2 g/dL (32.0-36.0); Mean Corpuscular Hemoglobin 35.9 pg (27.0-31.0); Mean Platelet Volume 8.3 fL (7.4-10.4); Monocytes 19 % (0-10); Neutrophil 52 % (42-75); Nucleated RBC 5 % (0); Platelet Count 321 thou/uL (130-400); RBC Distribution Width 17.7 % (11.5-14.5); Red Blood Cell (RBC) Count 2.25 mill/uL (4.20-5.40); Target Cells SLIGHT = 2-5 cells (100X) (0-1/hpf); White Blood Cell (WBC) Count 12.5 thou/uL (4.8-10.8)
[2018-04-20] MEDS: Polyethylene Glycol 3350 17 GM Packet PO SCH (09:21)
[2018-04-20] MEDS: Potassium Chloride 10 MEQ TAB PO SCH (09:21)
[2018-04-20] MEDS: Hydroxyurea 500 MG CAP PO SCH (09:22)
[2018-04-20] MEDS: Enoxaparin Sodium 40 MG/0.4 ML SYRINGE SC SCH (09:22)
--- NOTE | 2018-04-20 09:25 | PDOC.EVN ---
Event Note - Event Note Event Note: Patient seen and examined by myself, her pain seems controlled with BICYCLE COURIER, she is energetic to go home later today, spoke with Mom and she is agreed, she is stable with current treatment, plan discussed with SHIPPING AND RECEIVING SUPERVISOR, will reduce IVF
[2018-04-20] MEDS: Ibuprofen 600 MG TAB PO PRN (09:43)
[2018-04-20] MEDS ORDERED: traMADol HCl 50 MG TAB PO PRN (10:04)
[2018-04-20] MEDS ORDERED: Lactated Ringer's 1,000 ML IV SCH (10:15)
[2018-04-20 12:08] VITALS: BP 118/58; TEMP 99.2
--- NOTE | 2018-04-21 00:45 | DIS ---
DATE OF ADMISSION: 04/18/2018 DATE OF DISCHARGE: 04/20/2018 PRIMARY CARE PHYSICIAN: Valentino. CONSULTANTS: Anesthesiology. PROCEDURES: The patient had a chest x-ray, which showed a possible infiltrate in the right lower lobe. Subsequent x-ray the following day showed no radiographic evidence of acute cardiopulmonary process. The patient also had a Doppler ultrasound of the right upper extremity. The patient also had bilateral lower extremity venous Doppler exams, which showed no evidence of DVTs in either extremity. HOSPITAL COURSE: Ms. Hughes is a 22-year-old female, who was admitted through the emergency room by the [facility] for sickle cell pain. The patient reported to the emergency room on day of admission for evaluation of a sickle cell crisis. Reports that her last episode was 2 weeks ago with admission to the [facility]. Last transfusion was 01/2018. The patient reports back pain, chest wall pain, leg pain, and right upper arm pain. The patient's initial white blood cell count was 12.3, elevated to 15.6 and then back down on day of discharge to 12.5; hemoglobin 8.9; hematocrit 25.5; and platelet count 321 on discharge, bands down to 4. The patient was subsequently admitted to the observation unit for pain management and evaluation. Anesthesia was consulted for placement of a PATIENT SCHEDULER pump for pain control. The patient was started on Lovenox for DVT prophylaxis and was given Lactated Ringer's IV infusion initially at 175 and then decreased to 75 mL per hour on day of discharge. On 02/18/2018, the patient reports that she is feeling much better, does have some leg achiness. Denies any acute pain. Reports that she desire to return home. PATIENT SCHEDULER pump was discontinued. The patient was given Motrin and some tramadol, pain was well controlled and then the patient desired to go home. DISCHARGE DIAGNOSES: 1. Sickle cell crisis, improved. 2. Leukocytosis. 3. Sickle cell anemia. 4. Hypertension. 5. Hypokalemia, improved. REVIEW OF SYSTEMS: The patient was examined on morning of discharge; the patient had some mild pain to both lower extremities. Reports that she is able to get up to go to the bathroom on her own. Denies headache, chest pain, shortness of breath, palpitations, abdominal pain, nausea, vomiting, diarrhea, fever, or chills. All other systems were reviewed and are negative unless mentioned in the hospital course. PHYSICAL EXAMINATION: VITAL SIGNS: Temperature 98.6, pulse is 101, blood pressure 114/65, respirations 18, and pulse ox is 94% on room air. CONSTITUTIONAL: The patient is alert and oriented to person, place, and time. HEENT: Head is atraumatic and normocephalic. Eyes; extraocular muscles are intact. ENT; mouth exam is normal. Mucous membranes moist. NECK: Normal range of motion. Trachea is midline. RESPIRATORY/CHEST: Breath sounds are clear. No wheezing. No rales. CARDIOVASCULAR: Heart rate is regular rate and rhythm. Heart sounds are normal S1, S2. ABDOMEN: Female. Abdomen is nontender. Bowel sounds are normal. No distention. No masses. BACK: Normal inspection. No tenderness. Upper extremities; motor strength is normal, sensation is intact, radial pulses are normal. Lower extremities; inspection is normal, motor strength is normal. Bilateral knee joints with mild edema, mild warmth. Pedal pulses are normal bilaterally. NEUROLOGIC: Oriented to person, place, and time. Speech is normal. SKIN: Warm, dry, and normal in color. The patient was restarted on her home medication which includes; 1. Folic acid 1 mg p.o. daily. 2. Vitamin B12 of 1000 mcg p.o. daily. 3. Hydrea 500 mg p.o. b.i.d. 4. She was given some tramadol 50 mg p.o. every 4 hours as needed for pain. ALLERGIES: NONE. CONDITION: Stable. The patient will be discharged home. FOLLOWUP: The patient should follow up with the [facility] within the next week. Job ID: [id number]
== END 2018-04-20 13:46 | disposition home or self-care (01) ==
LOC: ERS 09:28 → 2SW 13:55
PROVIDERS: ADMIT Family Medicine; ATTEND Family Medicine
DX: D57.00 Hb-SS disease with crisis, unspecified (principal); D72.823 Leukemoid reaction; I10 Essential (primary) hypertension; E87.6 Hypokalemia; E80.6 Other disorders of bilirubin metabolism; Z79.899 Other long term (current) drug therapy
CPT/HCPCS: 36415; 71045; 71046; 80053; 81003; 81015; 81025; 84145; 85025; 85046; 87040; 87086; 87149; 87804; 93970; 96361; 96365; 96367; 96372; 96375; 96376; G0378; J0456; J0696; J1170; J1650; J2270; J2405; J2550

== ENCOUNTER 2018-08-08 19:29 | Emergency (ER) | payer OTHER, SELFPAY ==
--- NOTE | 2018-08-08 20:19 | RAD ---
PORTABLE CHEST 08/08/18 PROVIDED CLINICAL HISTORY: Back and chest pain. FINDINGS: Comparison is made with the study dated 04/18/18. The cardiac and mediastinal silhouette is within normal limits. No focal consolidation, pleural fluid or pneumothorax apparent. IMPRESSION: No evidence for an acute cardiopulmonary process. POS: [facility]
[2018-08-08 20:38] LABS: Reticulocyte Count 10.8 % (0.5-1.5)
[2018-08-08 20:42] LABS: Hemoglobin 8.9 g/dL (12.0-16.0); Mean Corpuscular HGB CONC 35.7 g/dL (32.0-36.0); Mean Corpuscular Hemoglobin 34.8 pg (27.0-31.0); Mean Corpuscular Volume 97.5 fL (78.0-98.0); Mean Platelet Volume 8.3 fL (7.4-10.4); Platelet Count 388 thou/uL (130-400); RBC Distribution Width 18.1 % (11.5-14.5); Red Blood Cell (RBC) Count 2.57 mill/uL (4.20-5.40); White Blood Cell (WBC) Count 10.9 thou/uL (4.8-10.8)
[2018-08-08 20:57] LABS: ALT (SGPT) 12 U/L (8-55); AST (SGOT) 26 U/L (5-34); Albumin 4.1 g/dL (3.5-5.0); Alkaline Phosphatase 87 U/L (40-150); Anion Gap 12 mmol/L (10-20); BUN (Urea Nitrogen) 6 mg/dL (7.0-18.7); Bilirubin, Total 9.9 mg/dL (0.2-1.2); Calc. Creatinine Clearance 0 mL/min (70-130); Calcium 9.1 mg/dL (7.8-10.44); Carbon Dioxide 26 mmol/L (22-29); Chloride 110 mmol/L (98-107); Estimated GFR-MDRD Greater than 90; Globulin 3.1 g/dL (2.4-3.5); Glucose 69 mg/dL (70-105); Potassium 3.8 mmol/L (3.5-5.1); Protein, Total 7.2 g/dL (6.0-8.3); Sodium 144 mmol/L (136-145)
[2018-08-08 21:00] LABS: Anisocytosis SLIGHT = 6-15 cells (100X) (0-5/hpf); Eosinophils 2 % (0-10); Lymphocytes 35 % (21-51); MDiff Complete? YES; Monocytes 10 % (0-10); Neutrophil 53 % (42-75); Nucleated RBC 4 % (0); Polychromasia MARKED = >4 cells (100X) (0-2/hpf); Sickle Cells MODERATE= 6-15 cells (100X) (None Seen); Target Cells SLIGHT = 2-5 cells (100X) (0-1/hpf)
[2018-08-08 21:01] LABS: BHCG - Serum Negative (NEGATIVE); Pregs Control Background? CLEAR/WHITE (CLR/WHITE); Pregs Control Bar Appear? YES (CONTROL BAR)
[2018-08-08] MEDS ORDERED: Morphine 4 MG/ML VIAL ONE (23:27)
[2018-08-08] MEDS ORDERED: Ondansetron PF 4 MG/2 ML Vial ONE (23:27)
== END 2018-08-09 01:29 | disposition home or self-care (01) ==
LOC: ERS 19:29
DX: D57.1 Sickle-cell disease without crisis (principal); R11.2 Nausea with vomiting, unspecified; R07.9 Chest pain, unspecified
CPT/HCPCS: 36415; 71045; 80053; 83690; 84484; 84703; 85025; 85046; 93005; 96361; 96374; 96375; J2270; J2405

== ENCOUNTER 2018-12-06 07:33 | Emergency (ER) | payer SELFPAY ==
[2018-12-06] MEDS ORDERED: Ondansetron PF 4 MG/2 ML Vial ONE ×2 (08:14→09:19)
[2018-12-06] MEDS ORDERED: Morphine 4 MG/ML VIAL ONE ×2 (08:14→10:04)
[2018-12-06 08:42] LABS: Hemoglobin 8.1 g/dL (12.0-16.0); Mean Corpuscular HGB CONC 36.3 g/dL (32.0-36.0); Mean Corpuscular Hemoglobin 35.5 pg (27.0-31.0); Mean Corpuscular Volume 97.8 fL (78.0-98.0); Mean Platelet Volume 8.1 fL (7.4-10.4); Platelet Count 398 thou/uL (130-400); Red Blood Cell (RBC) Count 2.29 mill/uL (4.20-5.40)
[2018-12-06 08:48] LABS: Bacteria/HPF 1+ HPF (None Seen); Bilirubin Negative (Negative); Blood, Urine 1+ (Negative); Clarity Clear (Clear); Glucose, Urine (Dipstick) Normal (Negative); Leukocyte Negative Leu/uL (Negative); Mucous/LPF Rare LPF (<2+); Nitrite Negative (Negative); Protein, Urine (Dipstick) 50 mg/dL (Neg-Trace); RBC/HPF 0-3 HPF (0-3); Squamous Epithelial 0-3 HPF (0-3); Urobilinogen 12 mg/dL (Less than 2)
[2018-12-06 08:49] LABS: Pregnancy Test - Urine (BHCG) Negative (Negative); Pregu Control Background? CLEAR/WHITE (CLR/WHITE); Pregu Control Bar Appear? YES (CONTROL BAR); Specific Gravity 1.014 (1.002-1.036)
[2018-12-06 09:04] LABS: ALT (SGPT) 11 U/L (8-55); AST (SGOT) 39 U/L (5-34); Albumin 4.1 g/dL (3.5-5.0); Alkaline Phosphatase 96 U/L (40-150); Anion Gap 13 mmol/L (10-20); BUN (Urea Nitrogen) 11 mg/dL (7.0-18.7); Bilirubin, Total 11.9 mg/dL (0.2-1.2); Calc. Creatinine Clearance 0 mL/min (70-130); Calcium 9.3 mg/dL (7.8-10.44); Carbon Dioxide 24 mmol/L (22-29); Chloride 106 mmol/L (98-107); Estimated GFR-MDRD Greater than 90; Globulin 3.4 g/dL (2.4-3.5); Glucose 96 mg/dL (70-105); Potassium 3.3 mmol/L (3.5-5.1); Protein, Total 7.5 g/dL (6.0-8.3); Sodium 140 mmol/L (136-145)
[2018-12-06 09:17] LABS: Band 1 % (5-11); Eosinophils 1 % (0-10); Hypochromia SLIGHT = 6-15 cells (100X) (0-5/hpf); Lymphocytes 19 % (21-51); MDiff Complete? YES; Monocytes 19 % (0-10); Neutrophil 60 % (42-75); Nucleated RBC 10 % (0); Platelet Morphology Comment Appears Adequate; Polychromasia MODERATE = 3-4 cells (100X) (0-2/hpf); Sickle Cells MODERATE= 6-15 cells (100X) (None Seen); White Blood Cell (WBC) Count 15.3 thou/uL (4.8-10.8)
--- NOTE | 2018-12-06 09:20 | RAD ---
PA AND LATERAL CHEST XRAY: HISTORY: Chest pain. COMPARISON: 04/19/2018. FINDINGS: Cardiac silhouette is prominent but stable in appearance compared to prior exam. The pulmonary vascu lature is within normal limits, and the lungs are clear. There has been no interval change compared to prior exam. IMPRESSION: 1. Mild cardiomegaly. 2. No acute cardiopulmonary process. POS: [facility]
[2018-12-06 09:21] LABS: Reticulocyte Count 13.5 % (0.5-1.5)
[2018-12-06] MEDS ORDERED: Ondansetron ODT 4 MG TAB ONE (11:14)
== END 2018-12-06 11:08 | disposition home or self-care (01) ==
LOC: ERS 07:33
DX: D57.00 Hb-SS disease with crisis, unspecified (principal); D50.0 Iron deficiency anemia secondary to blood loss (chronic); N39.0 Urinary tract infection, site not specified
CPT/HCPCS: 71046; 80053; 81003; 81015; 81025; 84484; 85025; 85046; 93005; 96361; 96374; 96375; 96376; J2270; J2405; Q0162

== ENCOUNTER 2018-12-07 04:47 | Emergency (ER) | payer SELFPAY ==
[2018-12-07] MEDS ORDERED: Ondansetron PF 4 MG/2 ML Vial ONE (05:07)
[2018-12-07] MEDS ORDERED: Ketorolac Tromethamine 30 MG/ML VIAL ONE (05:07)
[2018-12-07] MEDS ORDERED: Morphine 4 MG/ML VIAL ONE (05:07)
[2018-12-07] MEDS ORDERED: diphenhydrAMINE 50 MG/ML VIAL ONE (05:07)
[2018-12-07 05:38] LABS: Reticulocyte Count 13.2 % (0.5-1.5)
[2018-12-07 05:42] LABS: Mean Corpuscular Hemoglobin 35.6 pg (27.0-31.0); Mean Corpuscular Volume 97.2 fL (78.0-98.0); Red Blood Cell (RBC) Count 2.24 mill/uL (4.20-5.40); White Blood Cell (WBC) Count 15.3 thou/uL (4.8-10.8)
[2018-12-07 05:57] LABS: ALT (SGPT) 16 U/L (8-55); AST (SGOT) 34 U/L (5-34); Alkaline Phosphatase 76 U/L (40-150); Anion Gap 11 mmol/L (10-20); BUN (Urea Nitrogen) 9 mg/dL (7.0-18.7); Bilirubin, Total 12.2 mg/dL (0.2-1.2); Calc. Creatinine Clearance 0 mL/min (70-130); Calcium 8.8 mg/dL (7.8-10.44); Carbon Dioxide 25 mmol/L (22-29); Chloride 106 mmol/L (98-107); Estimated GFR-MDRD Greater than 90; Globulin 3.3 g/dL (2.4-3.5); Glucose 103 mg/dL (70-105); Potassium 3.1 mmol/L (3.5-5.1); Protein, Total 7.3 g/dL (6.0-8.3); Sodium 139 mmol/L (136-145)
[2018-12-07 06:02] LABS: Band 5 % (5-11); Lymphocytes 14 % (21-51); MDiff Complete? YES; Mean Corpuscular HGB CONC 36.6 g/dL (32.0-36.0); Mean Platelet Volume 8.2 fL (7.4-10.4); Monocytes 10 % (0-10); Neutrophil 71 % (42-75); Nucleated RBC 4 % (0); Platelet Count 401 thou/uL (130-400); Platelet Morphology Comment Appears Increased; Polychromasia SLIGHT = 2-3 cells (100X) (0-2/hpf); Sickle Cells MODERATE= 6-15 cells (100X) (None Seen); Target Cells SLIGHT = 2-5 cells (100X) (0-1/hpf)
== END 2018-12-07 07:39 | disposition home or self-care (01) ==
LOC: ERS 04:47
DX: D57.00 Hb-SS disease with crisis, unspecified (principal); Z79.899 Other long term (current) drug therapy
CPT/HCPCS: 36415; 80053; 85025; 85046; 93005; 96361; 96374; 96375; J1200; J1885; J2270; J2405

== ENCOUNTER 2019-03-27 06:41 | Emergency (ER) | payer SELFPAY ==
[2019-03-27] MEDS ORDERED: Acetaminophen 500 MG TAB ONE (07:20)
[2019-03-27] MEDS ORDERED: HYDROmorphone 0.5 MG/0.5 ML SYRINGE ONE (07:20)
[2019-03-27] MEDS ORDERED: diphenhydrAMINE 50 MG/ML VIAL ONE (07:20)
[2019-03-27 07:43] LABS: Reticulocyte Count 13.2 % (0.5-1.5)
[2019-03-27 07:44] LABS: ALT (SGPT) 13 U/L (8-55); AST (SGOT) 34 U/L (5-34); Albumin 4.4 g/dL (3.5-5.0); Alkaline Phosphatase 88 U/L (40-110); Anion Gap 16 mmol/L (10-20); BUN (Urea Nitrogen) 6 mg/dL (7.0-18.7); Bilirubin, Total 13.9 mg/dL (0.2-1.2); Calc. Creatinine Clearance 0 mL/min (70-130); Calcium 9.2 mg/dL (7.8-10.44); Carbon Dioxide 23 mmol/L (22-29); Chloride 108 mmol/L (98-107); Estimated GFR-MDRD Greater than 90; Globulin 3.3 g/dL (2.4-3.5); Glucose 95 mg/dL (70-105); Potassium 3.8 mmol/L (3.5-5.1); Protein, Total 7.7 g/dL (6.0-8.3); Sodium 143 mmol/L (136-145)
[2019-03-27 07:45] LABS: Hemoglobin 8.9 g/dL (12.0-16.0); Mean Corpuscular Hemoglobin 36.6 pg (27.0-31.0); Mean Corpuscular Volume 98.9 fL (78.0-98.0); Platelet Count 390 thou/uL (130-400); RBC Distribution Width 18.4 % (11.5-14.5); Red Blood Cell (RBC) Count 2.44 mill/uL (4.20-5.40); White Blood Cell (WBC) Count 11.9 thou/uL (4.8-10.8)
[2019-03-27 08:04] LABS: Band 2 % (5-11); Eosinophils 2 % (0-10); Large Platelets SLIGHT; Lymphocytes 32 % (21-51); MDiff Complete? YES; Mean Platelet Volume 8.8 fL (7.4-10.4); Monocytes 12 % (0-10); Neutrophil 49 % (42-75); Nucleated RBC 4 % (0); Ovalocytes SLIGHT = 2-5 cells (100X) (0-1/hpf); Platelet Morphology Comment Appears Adequate; Polychromasia SLIGHT = 2-3 cells (100X) (0-2/hpf); Reactive Lymphocytes 3 % (0-10); Sickle Cells SLIGHT = 1-5 cells (100X) (None Seen); Target Cells SLIGHT = 2-5 cells (100X) (0-1/hpf); Vacuoles SLIGHT
[2019-03-27] MEDS ORDERED: traMADol HCl 50 MG TAB ONE (09:36)
[2019-03-27] MEDS ORDERED: Morphine 4 MG/ML VIAL ONE (09:37)
[2019-03-27] MEDS ORDERED: Ondansetron PF 4 MG/2 ML Vial ONE (09:37)
[2019-03-27] MEDS ORDERED: Ketorolac Tromethamine 30 MG/ML VIAL ONE (09:37)
== END 2019-03-27 10:09 | disposition home or self-care (01) ==
LOC: ERS 06:41
DX: D57.00 Hb-SS disease with crisis, unspecified (principal)
CPT/HCPCS: 80053; 85025; 85046; 93005; 96361; 96374; 96375; J1170; J1200; J1885; J2270; J2405

== ENCOUNTER 2019-03-28 00:21 | Emergency (ER) | payer SELFPAY ==
[2019-03-28] MEDS ORDERED: Morphine 10 MG/ML VIAL ONE (00:45)
[2019-03-28] MEDS ORDERED: Ondansetron ODT 8 MG TAB ONE (00:45)
[2019-03-28 00:53] LABS: Reticulocyte Count 12.3 % (0.5-1.5)
[2019-03-28 01:13] LABS: Band 1 % (5-11); Hemoglobin 8.1 g/dL (12.0-16.0); Lymphocytes 20 % (21-51); MDiff Complete? YES; Mean Corpuscular HGB CONC 36.6 g/dL (32.0-36.0); Mean Corpuscular Hemoglobin 35.6 pg (27.0-31.0); Mean Corpuscular Volume 97.2 fL (78.0-98.0); Mean Platelet Volume 8.2 fL (7.4-10.4); Metamyelocyte 1 % (0-0); Monocytes 10 % (0-10); Neutrophil 67 % (42-75); Nucleated RBC 14 % (0); Platelet Count 360 thou/uL (130-400); Platelet Morphology Comment Appears Adequate; RBC Distribution Width 19.1 % (11.5-14.5); Red Blood Cell (RBC) Count 2.27 mill/uL (4.20-5.40); White Blood Cell (WBC) Count 12.4 thou/uL (4.8-10.8)
== END 2019-03-28 01:35 | disposition home or self-care (01) ==
LOC: ERS 00:21
DX: D57.00 Hb-SS disease with crisis, unspecified (principal)
CPT/HCPCS: 36415; 85025; 85046; 96372; 99284; J2270

== ENCOUNTER 2019-05-31 04:38 | Emergency (ER) | payer SELFPAY ==
[2019-05-31] MEDS ORDERED: Morphine 10 MG/ML VIAL ONE (05:11)
[2019-05-31] MEDS ORDERED: Ondansetron ODT 4 MG TAB ONE ×2 (05:15→05:16)
[2019-05-31 05:35] LABS: Reticulocyte Count 17.1 % (0.5-1.5)
[2019-05-31 06:22] LABS: Hemoglobin 8.6 g/dL (12.0-16.0); Mean Corpuscular HGB CONC 36.1 g/dL (32.0-36.0); Mean Corpuscular Hemoglobin 35.5 pg (27.0-31.0); Mean Corpuscular Volume 98.4 fL (78.0-98.0); Mean Platelet Volume 8.8 fL (7.4-10.4); Platelet Count 354 thou/uL (130-400); RBC Distribution Width 20.6 % (11.5-14.5); Red Blood Cell (RBC) Count 2.43 mill/uL (4.20-5.40)
[2019-05-31 06:39] LABS: Band 2 % (5-11); Eosinophils 2 % (0-10); Lymphocytes 32 % (21-51); MDiff Complete? YES; Metamyelocyte 1 % (0-0); Monocytes 9 % (0-10); Myelocyte 1 % (0-0); Neutrophil 53 % (42-75); Nucleated RBC 8 % (0); Polychromasia MARKED = >4 cells (100X) (0-2/hpf); Sickle Cells SLIGHT = 1-5 cells (100X) (None Seen); Target Cells SLIGHT = 2-5 cells (100X) (0-1/hpf); White Blood Cell (WBC) Count 10.6 thou/uL (4.8-10.8)
[2019-05-31] MEDS ORDERED: HYDROcodone/Acetaminophen 5/325 mg Tablet ONE (06:39)
[2019-05-31] MEDS ORDERED: Promethazine HCl 25 MG/ML VIAL ONE (06:44)
== END 2019-05-31 07:18 | disposition home or self-care (01) ==
LOC: ERS 04:38
DX: D57.00 Hb-SS disease with crisis, unspecified (principal); Z79.891 Long term (current) use of opiate analgesic
CPT/HCPCS: 36415; 85025; 85046; 96372; 99284; J2270; J2550; Q0162

== ENCOUNTER 2019-08-18 15:20 | Emergency (ER) | payer SELFPAY ==
[2019-08-18] MEDS ORDERED: Morphine 4 MG/ML VIAL ONE (16:27)
[2019-08-18] MEDS ORDERED: Ondansetron PF 4 MG/2 ML Vial ONE (16:27)
[2019-08-18 16:50] LABS: Reticulocyte Count 15.2 % (0.5-1.5)
--- NOTE | 2019-08-18 16:59 | RAD ---
PORTABLE CHEST ONE VIEW: 08/18/19 at 4:32 p.m. HISTORY: Chest pain. Sickle cell anemia. COMPARISON: 12/06/18. FINDINGS: The heart size is prominent but stable. The lungs are expanded without lobar consolidation, pneumotho races, [place] pulmonary edema or pleural effusions. IMPRESSION: No acute process. POS: [facility]
[2019-08-18 17:01] LABS: Hemoglobin 8.3 g/dL (12.0-16.0); Mean Corpuscular HGB CONC 36.7 g/dL (32.0-36.0); Mean Corpuscular Hemoglobin 35.7 pg (27.0-31.0); Mean Corpuscular Volume 97.1 fL (78.0-98.0); Mean Platelet Volume 8.5 fL (7.4-10.4); Platelet Count 341 thou/uL (130-400); Red Blood Cell (RBC) Count 2.31 mill/uL (4.20-5.40); White Blood Cell (WBC) Count 13.9 thou/uL (4.8-10.8)
[2019-08-18 17:11] LABS: ALT (SGPT) 15 U/L (8-55); AST (SGOT) 41 U/L (5-34); Albumin 4.2 g/dL (3.5-5.0); Alkaline Phosphatase 91 U/L (40-110); Anion Gap 12 mmol/L (10-20); BUN (Urea Nitrogen) 11 mg/dL (7.0-18.7); Bilirubin, Total 9.9 mg/dL (0.2-1.2); Calc. Creatinine Clearance 0 mL/min (70-130); Calcium 8.9 mg/dL (7.8-10.44); Carbon Dioxide 22 mmol/L (22-29); Chloride 109 mmol/L (98-107); Estimated GFR-MDRD Greater than 90; Globulin 3.1 g/dL (2.4-3.5); Glucose 76 mg/dL (70-105); Potassium 4.3 mmol/L (3.5-5.1); Protein, Total 7.3 g/dL (6.0-8.3); Sodium 139 mmol/L (136-145)
[2019-08-18] MEDS ORDERED: HYDROmorphone 0.5 MG/0.5 ML SYRINGE ONE (17:22)
[2019-08-18 17:25] LABS: Anisocytosis MODERATE=16-30 cells (100X) (0-5/hpf); Band 4 % (5-11); Elliptocytes SLIGHT = 2-5 cells (100X) (0-1/hpf); Eosinophils 2 % (0-10); Lymphocytes 22 % (21-51); MDiff Complete? YES; Metamyelocyte 4 % (0-0); Monocytes 6 % (0-10); Myelocyte 2 % (0-0); Neutrophil 60 % (42-75); Nucleated RBC 5 % (0); Ovalocytes SLIGHT = 2-5 cells (100X) (0-1/hpf); Platelet Morphology Comment Appears Adequate; Poikilocytosis SLIGHT = 6-15 cells (100X) (0-5/hpf); Polychromasia MODERATE = 3-4 cells (100X) (0-2/hpf); Sickle Cells SLIGHT = 1-5 cells (100X) (None Seen); Spherocytes SLIGHT = 1-5 cells (100X) (None Seen)
[2019-08-18] MEDS ORDERED: Acetaminophen 500 MG TAB ONE (17:29)
[2019-08-18] MEDS ORDERED: diphenhydrAMINE 50 MG/ML VIAL ONE (17:29)
[2019-08-18 18:09] LABS: Bacteria/HPF None Seen HPF (None Seen); Bilirubin Negative (Negative); Blood, Urine 1+ (Negative); Clarity Clear (Clear); Glucose, Urine (Dipstick) Normal (Negative); Leukocyte Negative Leu/uL (Negative); Nitrite Negative (Negative); Protein, Urine (Dipstick) 30 mg/dL (Neg-Trace); RBC/HPF 0-3 HPF (0-3); Squamous Epithelial 0-3 HPF (0-3); Urobilinogen 6 mg/dL (Less than 2); WBC/HPF 0-3 HPF (0-3)
== END 2019-08-18 19:15 | disposition home or self-care (01) ==
LOC: ERS 15:20
DX: D57.00 Hb-SS disease with crisis, unspecified (principal)
CPT/HCPCS: 71045; 80053; 81003; 81015; 85025; 85046; 96361; 96374; 96375; J1170; J1200; J2270; J2405

== ENCOUNTER 2019-08-18 23:48 | Emergency (ER) | payer SELFPAY ==
[2019-08-19] MEDS ORDERED: Ketorolac Tromethamine 30 MG/ML VIAL ONE (00:08)
== END 2019-08-19 00:38 | disposition home or self-care (01) ==
LOC: ERS 23:48
DX: D57.00 Hb-SS disease with crisis, unspecified (principal)
CPT/HCPCS: 96372; 99283; J1885

== ENCOUNTER 2020-01-26 10:23 | Emergency (ER) | payer SELFPAY ==
[2020-01-26 11:01] LABS: Reticulocyte Count 15.5 % (0.5-1.5)
[2020-01-26 11:19] LABS: Hemoglobin 8.9 g/dL (12.0-16.0); Mean Corpuscular Hemoglobin 34.7 pg (27.0-31.0); Mean Corpuscular Volume 96.4 fL (78.0-98.0); Mean Platelet Volume 8.8 fL (7.4-10.4); Platelet Count 412 thou/uL (130-400); RBC Distribution Width 21.1 % (11.5-14.5); Red Blood Cell (RBC) Count 2.57 mill/uL (4.20-5.40)
[2020-01-26 11:23] LABS: ALT (SGPT) 19 U/L (8-55); AST (SGOT) 45 U/L (5-34); Albumin 4.2 g/dL (3.5-5.0); Alkaline Phosphatase 103 U/L (40-110); Anion Gap 16 mmol/L (10-20); BUN (Urea Nitrogen) 10 mg/dL (7.0-18.7); Band 4 % (5-11); Bilirubin, Total 9.5 mg/dL (0.2-1.2); Calc. Creatinine Clearance 0 mL/min (70-130); Carbon Dioxide 22 mmol/L (22-29); Chloride 107 mmol/L (98-107); Eosinophils 2 % (0-10); Estimated GFR-MDRD Greater than 90; Globulin 3.2 g/dL (2.4-3.5); Glucose 96 mg/dL (70-105); Lymphocytes 29 % (21-51); MDiff Complete? YES; Metamyelocyte 3 % (0-0); Monocytes 10 % (0-10); Neutrophil 51 % (42-75); Nucleated RBC 10 % (0); Platelet Morphology Comment Appears Increased; Polychromasia MARKED = >4 cells (100X) (0-2/hpf); Potassium 3.6 mmol/L (3.5-5.1); Protein, Total 7.4 g/dL (6.0-8.3); Reactive Lymphocytes 1 % (0-10); Reflex for Review?? NO; Sickle Cells MARKED = >16 cells (100X) (None Seen); Sodium 141 mmol/L (136-145)
[2020-01-26] MEDS ORDERED: Morphine 4 MG/ML VIAL ONE (11:30)
[2020-01-26] MEDS ORDERED: Ondansetron PF 4 MG/2 ML Vial ONE (11:30)
[2020-01-26] MEDS ORDERED: diphenhydrAMINE 50 MG/ML VIAL ONE (11:30)
[2020-01-26 11:55] LABS: Bacteria/HPF None Seen HPF (None Seen); Bilirubin Negative (Negative); Blood, Urine 3+ (Negative); Clarity Clear (Clear); Glucose, Urine (Dipstick) Normal (Negative); Ketone, Urine Negative (Negative); Leukocyte Negative Leu/uL (Negative); Nitrite Negative (Negative); Pregnancy Test - Urine (BHCG) Negative (Negative); Pregu Control Background? CLEAR/WHITE (CLR/WHITE); Pregu Control Bar Appear? YES (CONTROL BAR); Protein, Urine (Dipstick) 200 mg/dL (Neg-Trace); RBC/HPF 0-3 HPF (0-3); Specific Gravity 1.014 (1.002-1.036); Specific Gravity, Urine 1.014 (1.002-1.036); Squamous Epithelial 0-3 HPF (0-3); Urobilinogen 6 mg/dL (Less than 2); WBC/HPF 0-3 HPF (0-3); pH, Urine 6.5 (5.0-9.0)
[2020-01-26] MEDS ORDERED: Acetaminophen 500 MG TAB ONE (12:10)
[2020-01-26] MEDS ORDERED: HYDROmorphone 0.5 MG/0.5 ML SYRINGE ONE (12:10)
[2020-01-26] MEDS ORDERED: Ondansetron ODT 4 MG TAB ONE (13:43)
--- NOTE | 2020-01-26 13:58 | RAD ---
PA AND LATERAL CHEST: 01/26/20 HISTORY: Chest pain and back pain. Heart size and mediastinum within normal limits. The lungs are clear of infiltrates. No significant b kyle findings. IMPRESSION: No active intrathoracic disease. POS: [facility]
== END 2020-01-26 13:40 | disposition home or self-care (01) ==
LOC: ERS 10:23
DX: D57.00 Hb-SS disease with crisis, unspecified (principal)
CPT/HCPCS: 36415; 71046; 80053; 81003; 81015; 81025; 83690; 85025; 85046; 96361; 96374; 96375; 99406; J1170; J1200; J2270; J2405; Q0162

== ENCOUNTER 2020-06-07 23:46 | Emergency (ER) | payer SELFPAY ==
[2020-06-08] MEDS ORDERED: Ondansetron PF 4 MG/2 ML Vial ONE ×2 (00:30→01:44)
[2020-06-08] MEDS ORDERED: Morphine 4 MG/ML VIAL ONE ×2 (00:30→01:44)
[2020-06-08 00:55] LABS: Reticulocyte Count 12.6 % (0.5-1.5)
[2020-06-08 00:59] LABS: BHCG - Serum Negative (NEGATIVE); Hemoglobin 8.5 g/dL (12.0-16.0); Mean Corpuscular Hemoglobin 36.7 pg (27.0-31.0); Mean Corpuscular Volume 99.2 fL (78.0-98.0); Mean Platelet Volume 8.6 fL (7.4-10.4); Platelet Count 380 thou/uL (130-400); Pregs Control Background? CLEAR/WHITE (CLR/WHITE); Pregs Control Bar Appear? YES (CONTROL BAR); RBC Distribution Width 21.3 % (11.5-14.5); Red Blood Cell (RBC) Count 2.32 mill/uL (4.20-5.40); White Blood Cell (WBC) Count 19.1 thou/uL (4.8-10.8)
[2020-06-08 01:05] LABS: ALT (SGPT) 14 U/L (8-55); AST (SGOT) 33 U/L (5-34); Albumin 4.2 g/dL (3.5-5.0); Alkaline Phosphatase 75 U/L (40-110); Anion Gap 17 mmol/L (10-20); BUN (Urea Nitrogen) 9 mg/dL (7.0-18.7); Bilirubin, Total 10.7 mg/dL (0.2-1.2); Calc. Creatinine Clearance 0 mL/min (70-130); Calcium 8.9 mg/dL (7.8-10.44); Carbon Dioxide 20 mmol/L (22-29); Chloride 108 mmol/L (98-107); Globulin 3.5 g/dL (2.4-3.5); Glucose 181 mg/dL (70-105); Potassium 3.5 mmol/L (3.5-5.1); Protein, Total 7.7 g/dL (6.0-8.3); Sodium 141 mmol/L (136-145)
[2020-06-08 01:22] LABS: Elliptocytes SLIGHT = 2-5 cells (100X) (0-1/hpf); Hypochromia SLIGHT = 6-15 cells (100X) (0-5/hpf); Lymphocytes 20 % (21-51); MDiff Complete? YES; Monocytes 6 % (0-10); Neutrophil 74 % (42-75); Nucleated RBC 1 % (0); Platelet Morphology Comment Appears Adequate; Polychromasia SLIGHT = 2-3 cells (100X) (0-2/hpf); Sickle Cells SLIGHT = 1-5 cells (100X) (None Seen); Target Cells SLIGHT = 2-5 cells (100X) (0-1/hpf)
[2020-06-08] MEDS ORDERED: Ketorolac Tromethamine 30 MG/ML VIAL ONE (02:11)
--- NOTE | 2020-06-08 07:26 | RAD ---
CHEST 2 VIEWS: COMPARISON: 01/26/2020. HISTORY: Sickle cell. FINDINGS: Normal cardiac silhouette. Lungs and pleural spaces are clear. No pneumothorax or acute osseous abn ormalities. IMPRESSION: No acute cardiopulmonary process. POS: [facility]
== END 2020-06-08 02:55 | disposition home or self-care (01) ==
LOC: ERS 23:46
DX: D57.00 Hb-SS disease with crisis, unspecified (principal)
CPT/HCPCS: 36415; 71046; 80053; 84703; 85025; 85046; 96374; 96375; J1885; J2270; J2405

== ENCOUNTER 2020-07-13 13:32 | Emergency (ER) | payer SELFPAY ==
[2020-07-13] MEDS ORDERED: Ketorolac Tromethamine 30 MG/ML VIAL ONE (16:15)
[2020-07-13] MEDS ORDERED: Morphine 4 MG/ML VIAL ONE (16:15)
[2020-07-13] MEDS ORDERED: Ondansetron PF 4 MG/2 ML Vial ONE (16:35)
== END 2020-07-13 18:15 | disposition home or self-care (01) ==
LOC: ERS 13:32
DX: D57.1 Sickle-cell disease without crisis (principal); R07.9 Chest pain, unspecified
CPT/HCPCS: 36415; 71046; 80053; 84484; 84703; 85025; 85046; 93005; 94760; 96374; 96375; J1885; J2270; J2405

== ENCOUNTER 2021-03-08 06:13 | Emergency (ER) | payer SELFPAY ==
[2021-03-08] MEDS ORDERED: Morphine 4 MG/ML VIAL ONE ×2 (06:44→07:58)
[2021-03-08] MEDS ORDERED: Ondansetron PF 4 MG/2 ML Vial ONE ×2 (06:44→08:06)
[2021-03-08 07:10] LABS: BHCG - Serum Negative (NEGATIVE); Pregs Control Background? CLEAR/WHITE (CLR/WHITE); Pregs Control Bar Appear? YES (CONTROL BAR)
[2021-03-08 07:19] LABS: ALT (SGPT) 16 U/L (8-55); AST (SGOT) 39 U/L (5-34); Albumin 3.9 g/dL (3.5-5.0); Alkaline Phosphatase 81 U/L (40-110); Anion Gap 11 mmol/L (10-20); BUN (Urea Nitrogen) 8 mg/dL (7.0-18.7); Bilirubin, Total 9.5 mg/dL (0.2-1.2); Calc. Creatinine Clearance 0 mL/min (70-130); Carbon Dioxide 23 mmol/L (22-29); Chloride 109 mmol/L (98-107); Globulin 3.5 g/dL (2.4-3.5); Glucose 93 mg/dL (70-105); Potassium 3.5 mmol/L (3.5-5.1); Protein, Total 7.4 g/dL (6.0-8.3); Sodium 139 mmol/L (136-145)
[2021-03-08 07:42] LABS: Hemoglobin 8.6 g/dL (12.0-16.0); Mean Corpuscular HGB CONC 36.9 g/dL (32.0-36.0); Mean Corpuscular Hemoglobin 36.5 pg (27.0-31.0); Mean Corpuscular Volume 99.1 fL (78.0-98.0); Mean Platelet Volume 8.4 fL (7.4-10.4); Platelet Count 362 thou/uL (130-400); RBC Distribution Width 18.1 % (11.5-14.5); Red Blood Cell (RBC) Count 2.35 mill/uL (4.20-5.40); White Blood Cell (WBC) Count 9.5 thou/uL (4.8-10.8)
[2021-03-08 08:16] LABS: Band 2 % (5-11); Eosinophils 5 % (0-10); Lymphocytes 26 % (21-51); MDiff Complete? YES; Metamyelocyte 1 % (0-0); Monocytes 14 % (0-10); Neutrophil 50 % (42-75); Nucleated RBC 4 % (0); Platelet Morphology Comment Appears Adequate; Polychromasia MARKED = >4 cells (100X) (0-2/hpf); Reflex for Review?? NO; Sickle Cells MARKED = >16 cells (100X) (None Seen)
== END 2021-03-08 09:42 | disposition home or self-care (01) ==
LOC: ERS 06:13
DX: D57.00 Hb-SS disease with crisis, unspecified (principal)
CPT/HCPCS: 71045; 80053; 84484; 84703; 85025; 85046; 93005; 96365; 96375; 96376; J2270; J2405

== ENCOUNTER 2021-12-05 04:44 | Observation (INO) | payer SELFPAY ==
[2021-12-05] MEDS ORDERED: Aspirin Chewable 81 MG TAB ONE (06:20)
[2021-12-05] MEDS ORDERED: Potassium Chloride 20 MEQ TAB ONE (06:20)
[2021-12-05 06:21] LABS: Reticulocyte Count 14.6 % (0.5-1.5)
[2021-12-05] MEDS ORDERED: Ketorolac Tromethamine 30 MG/ML VIAL ONE (06:24)
[2021-12-05 06:30] LABS: Hemoglobin 8.6 g/dL (12.0-16.0); Mean Corpuscular HGB CONC 34.5 g/dL (32.0-36.0); Mean Corpuscular Hemoglobin 35.3 pg (27.0-31.0); Mean Platelet Volume 8.7 fL (7.4-10.4); Platelet Count 429 thou/uL (130-400); RBC Distribution Width 18.2 % (11.5-14.5); Red Blood Cell (RBC) Count 2.43 mill/uL (4.20-5.40); White Blood Cell (WBC) Count 10.1 thou/uL (4.8-10.8)
[2021-12-05 06:33] LABS: ALT (SGPT) 12 U/L (8-55); AST (SGOT) 32 U/L (5-34); Albumin 4.1 g/dL (3.5-5.0); Alkaline Phosphatase 81 U/L (40-110); Anion Gap 15 mmol/L (10-20); BUN (Urea Nitrogen) 7 mg/dL (7.0-18.7); Bilirubin, Total 6.8 mg/dL (0.2-1.2); Calc. Creatinine Clearance 0 mL/min (70-130); Calcium 9.3 mg/dL (7.8-10.44); Carbon Dioxide 21 mmol/L (22-29); Chloride 109 mmol/L (98-107); Estimated GFR 128; Globulin 3.5 g/dL (2.4-3.5); Glucose 79 mg/dL (70-105); Potassium 3.6 mmol/L (3.5-5.1); Protein, Total 7.6 g/dL (6.0-8.3); Sodium 141 mmol/L (136-145)
[2021-12-05 06:57] LABS: Band 1 % (5-11); Eosinophils 2 % (0-10); Lymphocytes 33 % (21-51); MDiff Complete? YES; Metamyelocyte 1 % (0-0); Monocytes 8 % (0-10); Neutrophil 55 % (42-75); Nucleated RBC 2 % (0); Platelet Morphology Comment Appears Adequate; Polychromasia SLIGHT = 2-3 cells (100X) (0-2/hpf); Sickle Cells SLIGHT = 1-5 cells (100X) (None Seen); Stomatocytes SLIGHT = 2-5 cells (100X) (0-1/hpf)
[2021-12-05] MEDS ORDERED: Morphine 4 MG/ML VIAL ONE (07:25)
[2021-12-05] MEDS ORDERED: Ondansetron PF 4 MG/2 ML Vial ONE (07:25)
[2021-12-05] MEDS ORDERED: Ondansetron ODT 4 MG TAB PO PRN (09:18)
[2021-12-05] MEDS ORDERED: Ondansetron PF 4 MG/2 ML Vial IVP PRN (09:18)
[2021-12-05] MEDS ORDERED: HYDROcodone/Acetaminophen 7.5/325 mg Tablet PO PRN (09:41)
[2021-12-05] MEDS ORDERED: diphenhydrAMINE 25 MG CAP PO PRN (09:43)
[2021-12-05] MEDS ORDERED: Sodium Chloride 0.65% Nasal 44 ML BOT EA NARE PRN (09:43)
[2021-12-05 09:45] VITALS: BMI 24.4
[2021-12-05 13:10] LABS: Troponin I Less than 0.010 ng/mL (< 0.028)
[2021-12-05] MEDS: Heparin 5,000 UNITS/ML VIAL SC SCH ×2 (14:50→19:33)
[2021-12-05 15:31] LABS: Troponin I Less than 0.010 ng/mL (< 0.028)
[2021-12-05] MEDS ORDERED: Sodium Chloride 0.9% 1,000 ML IV SCH (16:15)
[2021-12-06 05:08] LABS: Band 3 % (5-11); Eosinophils 7 % (0-10); Hemoglobin 7.9 g/dL (12.0-16.0); Hypochromia SLIGHT = 6-15 cells (100X) (0-5/hpf); Lymphocytes 47 % (21-51); MDiff Complete? YES; Macrocytosis SLIGHT = 6-15 cells (100X) (0-5/hpf); Mean Corpuscular HGB CONC 36.9 g/dL (32.0-36.0); Mean Corpuscular Hemoglobin 38.1 pg (27.0-31.0); Mean Platelet Volume 8.1 fL (7.4-10.4); Monocytes 16 % (0-10); Neutrophil 27 % (42-75); Platelet Count 375 thou/uL (130-400); Platelet Morphology Comment Appears Adequate; RBC Distribution Width 18.5 % (11.5-14.5); Red Blood Cell (RBC) Count 2.07 mill/uL (4.20-5.40); White Blood Cell (WBC) Count 12.9 thou/uL (4.8-10.8)
[2021-12-06 05:18] LABS: ALT (SGPT) 12 U/L (8-55); AST (SGOT) 28 U/L (5-34); Albumin 3.7 g/dL (3.5-5.0); Alkaline Phosphatase 81 U/L (40-110); Anion Gap 12 mmol/L (10-20); BUN (Urea Nitrogen) 10 mg/dL (7.0-18.7); Bilirubin, Total 4.8 mg/dL (0.2-1.2); Calc. Creatinine Clearance 169 mL/min (70-130); Calcium 8.9 mg/dL (7.8-10.44); Carbon Dioxide 23 mmol/L (22-29); Chloride 109 mmol/L (98-107); Estimated GFR 129; Globulin 3.1 g/dL (2.4-3.5); Glucose 90 mg/dL (70-105); Potassium 3.8 mmol/L (3.5-5.1); Protein, Total 6.8 g/dL (6.0-8.3); Sodium 140 mmol/L (136-145)
[2021-12-06] MEDS ORDERED: ADENOSINE 60 MG/20 ML VIAL ONE (08:44)
[2021-12-06] MEDS ORDERED: EPINEPHrine 1 MG/ML AMP ONE (08:48)
[2021-12-06] MEDS ORDERED: diphenhydrAMINE 50 MG/ML VIAL ONE (08:48)
[2021-12-06] MEDS ORDERED: Cyanocobalamin (Vitamin B-12) 1,000 MCG TAB PO SCH (09:00)
[2021-12-06] MEDS: Heparin 5,000 UNITS/ML VIAL SC SCH (11:40)
[2021-12-06 11:53] VITALS: BP 138/85; TEMP 97.9
== END 2021-12-06 13:38 | disposition home or self-care (01) ==
LOC: ERS 04:44 → 2SW 09:32
PROVIDERS: ADMIT Student in an Organized Health Care Education/Training Program; ATTEND Student in an Organized Health Care Education/Training Program
DX: R07.9 Chest pain, unspecified (principal); D57.1 Sickle-cell disease without crisis; E80.6 Other disorders of bilirubin metabolism; I07.1 Rheumatic tricuspid insufficiency; Z88.5 Allergy status to narcotic agent; Z20.822 Contact with and (suspected) exposure to COVID-19
CPT/HCPCS: 36415; 71045; 78452; 80053; 84484; 85025; 85046; 93005; 93017; 93306; 96361; 96372; 96374; 96375; A9500; G0378; J0153; J0171; J1200; J1644; J1885; J2270; J2405; J7050; U0003; U0005

== ENCOUNTER 2022-03-04 05:12 | Emergency (ER) | payer SELFPAY ==
[2022-03-04] MEDS ORDERED: Ondansetron PF 4 MG/2 ML Vial ONE ×2 (06:18→08:29)
[2022-03-04] MEDS ORDERED: Acetaminophen 500 MG TAB ONE (06:18)
[2022-03-04] MEDS ORDERED: Ketorolac Tromethamine 30 MG/ML VIAL ONE (06:18)
[2022-03-04] MEDS ORDERED: HYDROmorphone 0.5 MG/0.5 ML SYRINGE ONE ×2 (06:22→08:29)
[2022-03-04 06:30] LABS: Hemoglobin 8.7 g/dL (12.0-16.0); Mean Corpuscular HGB CONC 35.3 g/dL (32.0-36.0); Mean Corpuscular Hemoglobin 35.6 pg (27.0-31.0); Mean Platelet Volume 8.2 fL (7.4-10.4); Platelet Count 348 thou/uL (130-400); RBC Distribution Width 19.3 % (11.5-14.5); Red Blood Cell (RBC) Count 2.44 mill/uL (4.20-5.40); White Blood Cell (WBC) Count 11.2 thou/uL (4.8-10.8)
[2022-03-04 06:32] LABS: ALT (SGPT) 13 U/L (8-55); AST (SGOT) 30 U/L (5-34); Albumin 3.9 g/dL (3.5-5.0); Alkaline Phosphatase 82 U/L (40-110); Anion Gap 13 mmol/L (10-20); BUN (Urea Nitrogen) 7 mg/dL (7.0-18.7); Bilirubin, Total 8.3 mg/dL (0.2-1.2); Calc. Creatinine Clearance 0 mL/min (70-130); Calcium 9.2 mg/dL (7.8-10.44); Carbon Dioxide 23 mmol/L (22-29); Chloride 110 mmol/L (98-107); Estimated GFR 127; Globulin 3.4 g/dL (2.4-3.5); Glucose 82 mg/dL (70-105); Potassium 3.7 mmol/L (3.5-5.1); Protein, Total 7.3 g/dL (6.0-8.3); Sodium 142 mmol/L (136-145)
[2022-03-04 06:42] LABS: Anisocytosis SLIGHT = 6-15 cells (100X) (0-5/hpf); Band 5 % (5-11); Eosinophils 4 % (0-10); Lymphocytes 26 % (21-51); MDiff Complete? YES; Metamyelocyte 2 % (0-0); Monocytes 3 % (0-10); Neutrophil 60 % (42-75); Nucleated RBC 4 % (0); Polychromasia MODERATE = 3-4 cells (100X) (0-2/hpf); Sickle Cells SLIGHT = 1-5 cells (100X) (None Seen)
[2022-03-04 07:51] LABS: BHCG - Serum Negative (NEGATIVE); Pregs Control Background? CLEAR/WHITE (CLR/WHITE); Pregs Control Bar Appear? YES (CONTROL BAR)
[2022-03-04 08:17] LABS: Bilirubin Negative (Negative); Blood, Urine 1+ (Negative); Clarity Clear (Clear); Glucose, Urine (Dipstick) Normal (Negative); Ketone, Urine Negative (Negative); Leukocyte Negative Leu/uL (Negative); Nitrite Negative (Negative); Protein, Urine (Dipstick) 50 mg/dL (Neg-Trace); RBC/HPF 0-3 HPF (0-3); Specific Gravity, Urine 1.011 (1.002-1.036); Squamous Epithelial 0-3 HPF (0-3); WBC/HPF 0-3 HPF (0-3); pH, Urine 7.5 (5.0-9.0)
[2022-03-04 08:18] LABS: Bacteria/HPF 1+ HPF (None Seen)
[2022-03-04 08:34] LABS: Pregnancy Test - Urine (BHCG) Negative (Negative); Pregu Control Background? CLEAR/WHITE (CLR/WHITE); Pregu Control Bar Appear? YES (CONTROL BAR); Specific Gravity 1.011 (1.002-1.036)
== END 2022-03-04 10:15 | disposition home or self-care (01) ==
LOC: ERS 05:12
DX: M54.6 Pain in thoracic spine (principal); R16.0 Hepatomegaly, not elsewhere classified
CPT/HCPCS: 36415; 71045; 74176; 80053; 81003; 81015; 81025; 84703; 85025; 87086; 96374; 96375; 96376; J1170; J1885; J2405

== ENCOUNTER 2022-03-04 22:11 | Inpatient (IN) | payer SELFPAY ==
[2022-03-04] MEDS ORDERED: Morphine 4 MG/ML VIAL ONE (23:24)
[2022-03-04] MEDS ORDERED: Ondansetron PF 4 MG/2 ML Vial ONE (23:24)
[2022-03-05 00:03] LABS: ALT (SGPT) 14 U/L (8-55); AST (SGOT) 51 U/L (5-34); Alkaline Phosphatase 71 U/L (40-110); Anion Gap 19 mmol/L (10-20); BUN (Urea Nitrogen) 8 mg/dL (7.0-18.7); Bilirubin, Total 9.5 mg/dL (0.2-1.2); Calc. Creatinine Clearance 0 mL/min (70-130); Calcium 9.4 mg/dL (7.8-10.44); Carbon Dioxide 14 mmol/L (22-29); Chloride 109 mmol/L (98-107); Estimated GFR 126; Globulin 3.5 g/dL (2.4-3.5); Glucose 88 mg/dL (70-105); Potassium 3.8 mmol/L (3.5-5.1); Protein, Total 7.5 g/dL (6.0-8.3); Sodium 138 mmol/L (136-145)
[2022-03-05] MEDS ORDERED: cefTRIAXone\\ROCEPHIN 1 GM VIAL ONE ×2 (00:09→04:39)
[2022-03-05] MEDS ORDERED: HYDROmorphone 0.5 MG/0.5 ML SYRINGE ONE (00:25)
[2022-03-05 00:36] LABS: Reticulocyte Count 12.9 % (0.5-1.5)
[2022-03-05 01:00] LABS: Anisocytosis MODERATE=16-30 cells (100X) (0-5/hpf); Band 4 % (5-11); Elliptocytes SLIGHT = 2-5 cells (100X) (0-1/hpf); Hemoglobin 8.8 g/dL (12.0-16.0); Lymphocytes 4 % (21-51); MDiff Complete? YES; Mean Corpuscular HGB CONC 34.2 g/dL (32.0-36.0); Mean Corpuscular Hemoglobin 35.1 pg (27.0-31.0); Mean Platelet Volume 8.9 fL (7.4-10.4); Monocytes 1 % (0-10); Neutrophil 91 % (42-75); Nucleated RBC 4 % (0); Platelet Count 369 thou/uL (130-400); Polychromasia SLIGHT = 2-3 cells (100X) (0-2/hpf); RBC Distribution Width 19.2 % (11.5-14.5); Red Blood Cell (RBC) Count 2.51 mill/uL (4.20-5.40); Sickle Cells SLIGHT = 1-5 cells (100X) (None Seen); White Blood Cell (WBC) Count 26.2 thou/uL (4.8-10.8)
[2022-03-05] MEDS ORDERED: Ondansetron PF 4 MG/2 ML Vial IVP PRN (01:15)
[2022-03-05] MEDS ORDERED: Sodium Chloride 0.9% 1,000 ML IV SCH ×2 (01:15→01:30)
[2022-03-05] MEDS ORDERED: Ondansetron ODT 4 MG TAB SL PRN (01:15)
[2022-03-05] MEDS ORDERED: Guaifenesin DM 100-10/5 ML UDCUP PO PRN (01:28)
[2022-03-05] MEDS ORDERED: Loperamide HCl 2 MG CAP PO PRN (01:28)
[2022-03-05] MEDS ORDERED: Zolpidem Tartrate 5 MG TAB PO PRN (01:28)
[2022-03-05 01:30] LABS: SARS-CoV-2 NAA Rapid Test Not Detected (NotDetected)
[2022-03-05] MEDS ORDERED: hydrALAZINE 20 MG/ML VIAL SLOW IVP PRN (01:30)
[2022-03-05 02:28] LABS: Reticulocyte Count 14.7 % (0.5-1.5)
[2022-03-05] MEDS ORDERED: cefTRIAXone\\ROCEPHIN 1 GM in Sodium Chloride 0.9% 100 ML IVPB SCH (03:00)
[2022-03-05] MEDS ORDERED: traMADol HCl 50 MG TAB ONE ×2 (03:09→11:50)
[2022-03-05] MEDS: traMADol HCl 50 MG TAB PO PRN ×2 (03:29→11:52)
[2022-03-05 04:38] LABS: ALT (SGPT) 40 U/L (8-55); AST (SGOT) 109 U/L (5-34); Albumin 3.5 g/dL (3.5-5.0); Alkaline Phosphatase 67 U/L (40-110); Anion Gap 12 mmol/L (10-20); BUN (Urea Nitrogen) 8 mg/dL (7.0-18.7); Bilirubin, Direct 1.4 mg/dL (0.1-0.3); Bilirubin, Total 9.8 mg/dL (0.2-1.2); Calc. Creatinine Clearance 0 mL/min (70-130); Calcium 8.2 mg/dL (7.8-10.44); Carbon Dioxide 22 mmol/L (22-29); Chloride 110 mmol/L (98-107); Estimated GFR 128; Glucose 108 mg/dL (70-105); Potassium 3.4 mmol/L (3.5-5.1); Protein, Total 6.5 g/dL (6.0-8.3); Sodium 141 mmol/L (136-145)
[2022-03-05 04:46] LABS: Hemoglobin 8.1 g/dL (12.0-16.0); Mean Corpuscular Hemoglobin 35.8 pg (27.0-31.0); Mean Platelet Volume 8.5 fL (7.4-10.4); Platelet Count 299 thou/uL (130-400); RBC Distribution Width 19.2 % (11.5-14.5); Red Blood Cell (RBC) Count 2.26 mill/uL (4.20-5.40); White Blood Cell (WBC) Count 23.4 thou/uL (4.8-10.8)
[2022-03-05 05:12] LABS: Anisocytosis MODERATE=16-30 cells (100X) (0-5/hpf); Band 6 % (5-11); Elliptocytes SLIGHT = 2-5 cells (100X) (0-1/hpf); Lymphocytes 12 % (21-51); MDiff Complete? YES; Monocytes 4 % (0-10); Neutrophil 78 % (42-75); Nucleated RBC 2 % (0); Polychromasia MODERATE = 3-4 cells (100X) (0-2/hpf); Sickle Cells SLIGHT = 1-5 cells (100X) (None Seen)
[2022-03-05] MEDS ORDERED: Ondansetron PF 4 MG/2 ML Vial ONE (07:07)
[2022-03-05] MEDS ORDERED: Morphine 4 MG/ML VIAL ONE ×2 (07:07→14:45)
[2022-03-05] MEDS: Morphine 4 MG/ML VIAL SLOW IVP PRN ×3 (07:09→23:24)
[2022-03-05] MEDS ORDERED: Famotidine 20 MG TAB ONE (07:51)
[2022-03-05] MEDS ORDERED: Enoxaparin Sodium 40 MG/0.4 ML SYRINGE ONE (07:51)
[2022-03-05] MEDS: Famotidine 20 MG TAB PO SCH ×2 (07:58→20:05)
[2022-03-05] MEDS ORDERED: HYDROcodone/Acetaminophen 5/325 mg Tablet ONE ×3 (08:33→14:54)
[2022-03-05] MEDS ORDERED: Enoxaparin Sodium 40 MG/0.4 ML SYRINGE SC SCH (09:00)
[2022-03-05] MEDS: HYDROcodone/Acetaminophen 5/325 mg Tablet PO PRN ×3 (09:52→20:04)
[2022-03-05] MEDS: Lactated Ringer's 1,000 ML IV SCH ×2 (09:53→17:20)
[2022-03-05] MEDS: Lidocaine 5% Patch TD SCH (14:26)
[2022-03-05] MEDS ORDERED: Cefepime 2 GM VIAL ONE (14:52)
[2022-03-05] MEDS ORDERED: Ondansetron ODT 4 MG TAB PO PRN (14:52)
[2022-03-05] MEDS: Cefepime 2 GM in Sodium Chloride 0.9% 100 ML IVPB SCH (14:57)
[2022-03-05 15:30] VITALS: BMI 25.3
[2022-03-05] MEDS: Ondansetron PF 4 MG/2 ML Vial IVP PRN ×2 (17:20→23:24)
[2022-03-05] MEDS ORDERED: cefTRIAXone\\ROCEPHIN 2 GM in Sodium Chloride 0.9% 100 ML IVPB SCH (23:59)
[2022-03-06] MEDS: HYDROcodone/Acetaminophen 5/325 mg Tablet PO PRN ×3 (01:30→12:44)
[2022-03-06] MEDS: Cefepime 2 GM in Sodium Chloride 0.9% 100 ML IVPB SCH ×2 (01:32→14:07)
[2022-03-06] MEDS: Lactated Ringer's 1,000 ML IV SCH ×2 (01:35→12:24)
[2022-03-06] MEDS ORDERED: Transdermal Patch Removal TOP SCH (02:00)
[2022-03-06] MEDS: traMADol HCl 50 MG TAB PO PRN (02:11)
[2022-03-06] MEDS: Morphine 4 MG/ML VIAL SLOW IVP PRN (05:15)
[2022-03-06] MEDS: Ondansetron PF 4 MG/2 ML Vial IVP PRN (05:15)
[2022-03-06 05:45] LABS: Strep pneumo Urine Ag NEGATIVE (NEGATIVE)
[2022-03-06] MEDS: Famotidine 20 MG TAB PO SCH (07:37)
[2022-03-06] MEDS ORDERED: Azithromycin 250 MG TAB PO SCH (09:00)
[2022-03-06] MEDS ORDERED: Folic Acid 1 MG TAB PO SCH (09:00)
[2022-03-06 10:12] LABS: Reticulocyte Count 17.5 % (0.5-1.5)
[2022-03-06 10:14] LABS: Hemoglobin 7.3 g/dL (12.0-16.0); Mean Corpuscular HGB CONC 34.5 g/dL (32.0-36.0); Mean Corpuscular Hemoglobin 35.8 pg (27.0-31.0); Mean Platelet Volume 8.1 fL (7.4-10.4); Platelet Count 282 thou/uL (130-400); Red Blood Cell (RBC) Count 2.03 mill/uL (4.20-5.40)
[2022-03-06 10:38] LABS: ALT (SGPT) 39 U/L (8-55); AST (SGOT) 35 U/L (5-34); Albumin 3.4 g/dL (3.5-5.0); Alkaline Phosphatase 77 U/L (40-110); Anion Gap 9 mmol/L (10-20); BUN (Urea Nitrogen) 6 mg/dL (7.0-18.7); Bilirubin, Total 13.9 mg/dL (0.2-1.2); Calc. Creatinine Clearance 188 mL/min (70-130); Calcium 8.9 mg/dL (7.8-10.44); Carbon Dioxide 26 mmol/L (22-29); Chloride 103 mmol/L (98-107); Estimated GFR 132; Globulin 3.1 g/dL (2.4-3.5); Glucose 103 mg/dL (70-105); Protein, Total 6.5 g/dL (6.0-8.3); Sodium 135 mmol/L (136-145)
[2022-03-06 11:29] LABS: Anisocytosis SLIGHT = 6-15 cells (100X) (0-5/hpf); Band 4 % (5-11); Eosinophils 1 % (0-10); Lymphocytes 2 % (21-51); MDiff Complete? YES; Macrocytosis SLIGHT = 6-15 cells (100X) (0-5/hpf); Monocytes 7 % (0-10); Neutrophil 86 % (42-75); Nucleated RBC 3 % (0); Ovalocytes SLIGHT = 2-5 cells (100X) (0-1/hpf); Platelet Morphology Comment Appears Adequate
[2022-03-06] MEDS ORDERED: Potassium Chloride 20 MEQ TAB PO SCH (11:45)
[2022-03-06] MEDS ORDERED: Lactated Ringer's 1,000 ML IV SCH (11:45)
[2022-03-06] MEDS: Lidocaine 5% Patch TD SCH (14:06)
[2022-03-07 02:32] VITALS: BP 121/73; TEMP 98.5
== END 2022-03-06 15:40 | disposition home or self-care (01) | DRG 871 ==
LOC: ERS 22:11 → ERHOLD 03-05 00:50 → OBSVTOIN 03-05 09:29 → 2SW 03-05 15:13
PROVIDERS: ADMIT Internal Medicine; ATTEND Internal Medicine
DX: A41.9 Sepsis, unspecified organism (principal); D57.00 Hb-SS disease with crisis, unspecified; J15.9 Unspecified bacterial pneumonia; Z20.822 Contact with and (suspected) exposure to COVID-19; E87.6 Hypokalemia; Z79.899 Other long term (current) drug therapy; Z90.49 Acquired absence of other specified parts of digestive tract; Z82.49 Family history of ischemic heart disease and other diseases of the circulatory system
CPT/HCPCS: 36415; 71045; 80053; 82247; 84145; 85025; 85046; 86713; 87040; 87070; 87205; 87449; 87804; 93005; 96374; 96375; J0692; J0696; J1170; J1650; J2270; J2405; J3490; J7050; J7120; U0002

== ENCOUNTER 2022-05-15 03:46 | Emergency (ER) | payer SELFPAY ==
[2022-05-15 04:44] LABS: ALT (SGPT) 16 U/L (8-55); AST (SGOT) 45 U/L (5-34); Albumin 4.1 g/dL (3.5-5.0); Alkaline Phosphatase 85 U/L (40-110); Anion Gap 16 mmol/L (10-20); BUN (Urea Nitrogen) 8 mg/dL (7.0-18.7); Bilirubin, Total 10.2 mg/dL (0.2-1.2); CRP (Inflammatory) Less than 0.50 mg/dL (= or < 0.5); Calc. Creatinine Clearance 0 mL/min (70-130); Calcium 8.7 mg/dL (7.8-10.44); Carbon Dioxide 18 mmol/L (22-29); Chloride 108 mmol/L (98-107); Estimated GFR 130; Globulin 3.3 g/dL (2.4-3.5); Glucose 96 mg/dL (70-105); Potassium 3.5 mmol/L (3.5-5.1); Protein, Total 7.4 g/dL (6.0-8.3); Sodium 138 mmol/L (136-145)
[2022-05-15 04:48] LABS: Mean Corpuscular HGB CONC 37.8 g/dL (32.0-36.0); Mean Corpuscular Hemoglobin 37.8 pg (27.0-31.0); Mean Corpuscular Volume 99.8 fl (78.0-98.0); Mean Platelet Volume 8.7 fL (7.4-10.4); Platelet Count 357 10x3/uL (130-400); RBC Distribution Width 19.4 % (11.5-14.5); Red Blood Cell (RBC) Count 2.38 mill/uL (4.20-5.40); White Blood Cell (WBC) Count 11.4 10x3/uL (4.8-10.8)
[2022-05-15 04:54] LABS: Reticulocyte Count 13.6 % (0.5-1.5)
[2022-05-15] MEDS ORDERED: Morphine 4 MG/ML VIAL ONE ×2 (05:05→06:35)
[2022-05-15] MEDS ORDERED: Ondansetron PF 4 MG/2 ML Vial ONE (05:06)
[2022-05-15] MEDS ORDERED: Ketorolac Tromethamine 30 MG/ML VIAL ONE (05:09)
[2022-05-15 05:45] LABS: Anisocytosis SLIGHT = 6-15 cells (100X) (0-5/hpf); Band 3 % (5-11); Eosinophils 4 % (0-10); Lymphocytes 42 % (21-51); MDiff Complete? YES; Metamyelocyte 1 % (0-0); Monocytes 8 % (0-10); Neutrophil 42 % (42-75); Nucleated RBC 5 % (0); Ovalocytes MODERATE= 6-15 cells (100X) (0-1/hpf); Platelet Morphology Comment Appears Adequate; Polychromasia SLIGHT = 2-3 cells (100X) (0-2/hpf)
== END 2022-05-15 10:08 | disposition home or self-care (01) ==
LOC: ERS 03:46
DX: D57.00 Hb-SS disease with crisis, unspecified (principal); E80.6 Other disorders of bilirubin metabolism
CPT/HCPCS: 36415; 71045; 80053; 84484; 85025; 85046; 86140; 93005; 96374; 96375; 96376; J1885; J2270; J2405

== ENCOUNTER 2022-05-16 03:38 | Emergency (ER) | payer SELFPAY ==
[2022-05-16] MEDS ORDERED: Morphine 2 MG/ML VIAL ONE (04:48)
[2022-05-16] MEDS ORDERED: Ondansetron PF 4 MG/2 ML Vial ONE (04:48)
[2022-05-16] MEDS ORDERED: Morphine 4 MG/ML VIAL ONE (04:48)
[2022-05-16 05:33] LABS: ALT (SGPT) 47 U/L (8-55); AST (SGOT) 87 U/L (5-34); Alkaline Phosphatase 86 U/L (40-110); Anion Gap 14 mmol/L (10-20); BUN (Urea Nitrogen) 10 mg/dL (7.0-18.7); Bilirubin, Total 11.8 mg/dL (0.2-1.2); Calc. Creatinine Clearance 0 mL/min (70-130); Calcium 8.9 mg/dL (7.8-10.44); Carbon Dioxide 20 mmol/L (22-29); Chloride 110 mmol/L (98-107); Estimated GFR 130; Globulin 3.3 g/dL (2.4-3.5); Glucose 100 mg/dL (70-105); Potassium 3.5 mmol/L (3.5-5.1); Protein, Total 7.3 g/dL (6.0-8.3); Sodium 140 mmol/L (136-145)
[2022-05-16 05:48] LABS: Hemoglobin 8.4 g/dL (12.0-16.0); Mean Corpuscular HGB CONC 35.1 g/dL (32.0-36.0); Mean Corpuscular Hemoglobin 34.8 pg (27.0-31.0); Mean Corpuscular Volume 99.1 fl (78.0-98.0); RBC Distribution Width 19.2 % (11.5-14.5); Red Blood Cell (RBC) Count 2.41 mill/uL (4.20-5.40)
[2022-05-16 05:51] LABS: Mean Platelet Volume 8.8 fL (7.4-10.4); Platelet Count 340 10x3/uL (130-400)
[2022-05-16 06:01] LABS: Reticulocyte Count 10.8 % (0.5-1.5)
[2022-05-16 06:21] LABS: Anisocytosis SLIGHT = 6-15 cells (100X) (0-5/hpf); Lymphocytes 8 % (21-51); MDiff Complete? YES; Monocytes 10 % (0-10); Neutrophil 82 % (42-75); Nucleated RBC 27 % (0); Poikilocytosis SLIGHT = 6-15 cells (100X) (0-5/hpf); Polychromasia MODERATE = 3-4 cells (100X) (0-2/hpf); Sickle Cells SLIGHT = 1-5 cells (100X) (None Seen); White Blood Cell (WBC) Count 12.3 10x3/uL (4.8-10.8)
== END 2022-05-16 07:24 | disposition home or self-care (01) ==
LOC: ERS 03:38
DX: D57.00 Hb-SS disease with crisis, unspecified (principal); D72.829 Elevated white blood cell count, unspecified
CPT/HCPCS: 71045; 80053; 84484; 85025; 85046; 86140; 93005; 96374; 96375; J2270; J2272; J2405

== ENCOUNTER 2022-07-22 07:28 | Emergency (ER) | payer MEDICAID, SELFPAY ==
[2022-07-22] MEDS ORDERED: Morphine 4 MG/ML VIAL ONE (07:50)
[2022-07-22] MEDS ORDERED: Ondansetron PF 4 MG/2 ML Vial ONE ×2 (07:50→10:16)
[2022-07-22 08:41] LABS: BHCG - Serum Negative (NEGATIVE); Pregs Control Background? CLEAR/WHITE (CLR/WHITE); Pregs Control Bar Appear? YES (CONTROL BAR)
[2022-07-22 08:44] LABS: Hemoglobin 9.6 g/dL (12.0-16.0); Mean Platelet Volume 8.9 fL (7.4-10.4); Platelet Count 328 10x3/uL (130-400); RBC Distribution Width 20.9 % (11.5-14.5); Red Blood Cell (RBC) Count 2.59 mill/uL (4.20-5.40); White Blood Cell (WBC) Count 10.6 10x3/uL (4.8-10.8)
[2022-07-22 09:07] LABS: Anisocytosis SLIGHT = 6-15 cells (100X) (0-5/hpf); Band 2 % (5-11); Eosinophils 4 % (0-10); Lymphocytes 22 % (21-51); MDiff Complete? YES; Macrocytosis SLIGHT = 6-15 cells (100X) (0-5/hpf); Metamyelocyte 1 % (0-0); Monocytes 6 % (0-10); Neutrophil 60 % (42-75); Nucleated RBC 5 % (0); Ovalocytes MODERATE= 6-15 cells (100X) (0-1/hpf); Platelet Morphology Comment Appears Adequate; Polychromasia MODERATE = 3-4 cells (100X) (0-2/hpf); Reactive Lymphocytes 5 % (0-10); Reflex for Review?? NO; Sickle Cells MODERATE= 6-15 cells (100X) (None Seen); Stomatocytes SLIGHT = 2-5 cells (100X) (0-1/hpf); Target Cells SLIGHT = 2-5 cells (100X) (0-1/hpf); Tear Drops SLIGHT = 2-5 cells (100X) (0-1/hpf)
[2022-07-22] MEDS ORDERED: HYDROmorphone 0.5 MG/0.5 ML SYRINGE ONE ×3 (09:44→18:14)
[2022-07-22] MEDS ORDERED: HYDROcodone/Acetaminophen 5/325 mg Tablet ONE (10:58)
[2022-07-22] MEDS ORDERED: Iopamidol-370 76% 500 ML MDV (1 ML CHARGE) ONE (11:15)
[2022-07-22] MEDS ORDERED: Ketorolac Tromethamine 30 MG/ML VIAL ONE (12:26)
[2022-07-22 13:49] LABS: ALT (SGPT) 21 U/L (8-55); AST (SGOT) 53 U/L (5-34); Albumin 4.2 g/dL (3.5-5.0); Alkaline Phosphatase 85 U/L (40-110); Anion Gap 16 mmol/L (10-20); BUN (Urea Nitrogen) 6 mg/dL (7.0-18.7); Bilirubin, Total 7.5 mg/dL (0.2-1.2); Calc. Creatinine Clearance 0 mL/min (70-130); Calcium 9.1 mg/dL (7.8-10.44); Carbon Dioxide 17 mmol/L (22-29); Chloride 112 mmol/L (98-107); Estimated GFR 129; Globulin 3.2 g/dL (2.4-3.5); Glucose 79 mg/dL (70-105); Lipase 39 U/L (8-78); Potassium 3.7 mmol/L (3.5-5.1); Protein, Total 7.4 g/dL (6.0-8.3); Sodium 141 mmol/L (136-145)
[2022-07-22] MEDS ORDERED: Aspirin Chewable 81 MG TAB ONE (15:00)
[2022-07-22] MEDS ORDERED: Promethazine HCl 12.5 MG in Sodium Chloride 0.9% 50 ML IVPB SCH (15:15)
== END 2022-07-22 18:54 | disposition short-term general hospital (02) ==
LOC: ERS 07:28
DX: D57.00 Hb-SS disease with crisis, unspecified (principal); R07.9 Chest pain, unspecified
CPT/HCPCS: 36415; 71045; 71275; 80053; 83690; 84484; 84703; 85025; 85046; 85379; 86850; 86900; 86901; 93005; 96374; 96375; 96376; J1170; J1885; J2270; J2405; J2550; Q9967

== ENCOUNTER 2022-11-20 05:03 | Emergency (ER) | payer OTHER, SELFPAY ==
[2022-11-20] MEDS ORDERED: Morphine 4 MG/ML VIAL ONE ×2 (05:19→05:53)
[2022-11-20] MEDS ORDERED: Ondansetron PF 4 MG/2 ML Vial ONE ×2 (05:19→05:53)
[2022-11-20 05:32] LABS: Hemoglobin 7.8 g/dL (12.0-16.0); Mean Corpuscular HGB CONC 38.2 g/dL (32.0-36.0); Mean Corpuscular Hemoglobin 36.8 pg (27.0-31.0); Mean Corpuscular Volume 96.2 fl (78.0-98.0); Mean Platelet Volume 10.4 fL (7.4-10.4); Platelet Count 362 10x3/uL (130-400); RBC Distribution Width 18.5 % (11.5-14.5); Red Blood Cell (RBC) Count 2.12 mill/uL (4.20-5.40); White Blood Cell (WBC) Count 10.6 10x3/uL (4.8-10.8)
[2022-11-20 05:35] LABS: Delete Auto Diff?? YES; Manual Diff?? YES
[2022-11-20 05:55] LABS: ALT (SGPT) 20 U/L (8-55); AST (SGOT) 35 U/L (5-34); Albumin 4.1 g/dL (3.5-5.0); Alkaline Phosphatase 90 U/L (40-110); Anion Gap 12 mmol/L (10-20); BUN (Urea Nitrogen) 10 mg/dL (7.0-18.7); Bilirubin, Total 5.9 mg/dL (0.2-1.2); Calc. Creatinine Clearance 0 mL/min (70-130); Calcium 9.1 mg/dL (7.8-10.44); Carbon Dioxide 21 mmol/L (22-29); Chloride 110 mmol/L (98-107); Estimated GFR 126; Glucose 106 mg/dL (70-105); Potassium 4.2 mmol/L (3.5-5.1); Protein, Total 7.1 g/dL (6.0-8.3); Sodium 139 mmol/L (136-145)
[2022-11-20 06:06] LABS: Anisocytosis SLIGHT = 6-15 cells HPF (0-5); Band 1 % (5-11); CellaVision Operator ID LAB.CLH1; Elliptocytes SLIGHT = 2-5 cells HPF (0-1); Eosinophils 1 % (0-10); Large Platelets 7.1 % (0-5); Lymphocytes 38 % (21-51); Macrocytosis SLIGHT = 6-15 cells HPF (0-5); Monocytes 7 % (0-10); Neutrophil 46 % (42-75); Nucleated RBC (Manual Ct) 4 % (0); Platelet Adequacy Comment Platelets Normal; Polychromasia MODERATE = 3-4 cells HPF (0-2); Reactive Lymphocytes 6 % (0-10); Sickle Cells SLIGHT = 1-5 cells HPF (None Seen); Target Cells SLIGHT = 2-5 cells HPF (0-1); Total Cell Count 98
[2022-11-20 06:20] LABS: BHCG - Serum Negative (NEGATIVE); Pregs Control Background? CLEAR/WHITE (CLR/WHITE); Pregs Control Bar Appear? YES (CONTROL BAR)
== END 2022-11-20 06:48 | disposition home or self-care (01) ==
LOC: ERS 05:03
DX: D57.00 Hb-SS disease with crisis, unspecified (principal)
CPT/HCPCS: 71045; 80053; 84484; 84703; 85025; 85046; 93005; 94760; 96361; 96374; 96375; J2270; J2405

== ENCOUNTER 2022-12-21 05:55 | Emergency (ER) | payer OTHER ==
[2022-12-21] MEDS ORDERED: Ondansetron ODT 4 MG TAB ONE (06:01)
[2022-12-21 06:35] LABS: Hematocrit 21.1 % (36.0-47.0); Hemoglobin 7.8 g/dL (12.0-16.0); Mean Corpuscular Hemoglobin 35.9 pg (27.0-31.0); Mean Corpuscular Volume 97.2 fl (78.0-98.0); Mean Platelet Volume 10.5 fL (7.4-10.4); Platelet Count 405 10x3/uL (130-400); RBC Distribution Width 18.3 % (11.5-14.5); Red Blood Cell (RBC) Count 2.17 mill/uL (4.20-5.40); White Blood Cell (WBC) Count 12.5 10x3/uL (4.8-10.8)
[2022-12-21 06:36] LABS: BHCG - Serum Negative (NEGATIVE); Pregs Control Background? CLEAR/WHITE (CLR/WHITE); Pregs Control Bar Appear? YES (CONTROL BAR)
[2022-12-21 06:52] LABS: Delete Auto Diff?? YES; Manual Diff?? YES
[2022-12-21 06:53] LABS: ALT (SGPT) 17 U/L (8-55); AST (SGOT) 41 U/L (5-34); Albumin 4.2 g/dL (3.5-5.0); Alkaline Phosphatase 83 U/L (40-110); Anion Gap 14 mmol/L (10-20); BUN (Urea Nitrogen) 13 mg/dL (7.0-18.7); Bilirubin, Total 8.2 mg/dL (0.2-1.2); Calc. Creatinine Clearance 0 mL/min (70-130); Calcium 9.5 mg/dL (7.8-10.44); Carbon Dioxide 18 mmol/L (22-29); Chloride 112 mmol/L (98-107); Estimated GFR 111; Globulin 3.4 g/dL (2.4-3.5); Glucose 97 mg/dL (70-105); Potassium 3.9 mmol/L (3.5-5.1); Protein, Total 7.6 g/dL (6.0-8.3); Sodium 140 mmol/L (136-145)
[2022-12-21 06:55] LABS: Troponin I Less than 0.010 ng/mL (< 0.028)
[2022-12-21] MEDS ORDERED: Morphine 4 MG/ML VIAL ONE ×2 (07:48→08:48)
[2022-12-21 08:20] LABS: Band 2 % (5-11); CellaVision Operator ID LAB.GE; Eosinophils 2 % (0-10); Large Platelets 2.9 % (0-5); Lymphocytes 12 % (21-51); Metamyelocyte 3 % (0-0); Monocytes 10 % (0-10); Myelocyte 3 % (0-0); Neutrophil 67 % (42-75); Nucleated RBC (Manual Ct) 6 % (0); Platelet Adequacy Comment Platelets Increased; Polychromasia MODERATE = 3-4 cells HPF (0-2); Sickle Cells MODERATE= 6-15 cells HPF (None Seen); Total Cell Count 102
[2022-12-21 08:33] LABS: SARS-CoV-2 NAA Rapid Test Not Detected (NotDetected)
[2022-12-21] MEDS ORDERED: Ondansetron PF 4 MG/2 ML Vial ONE (08:48)
[2022-12-21 09:24] LABS: Bacteria/HPF None Seen HPF (None Seen); Bilirubin Negative (Negative); Blood, Urine 1+ (Negative); CAUTI Indications for Culture Dysuria,urgency,freq; Clarity Clear (Clear); Glucose, Urine (Dipstick) Normal (Negative); Ketone, Urine Negative (Negative); Leukocyte Negative Leu/uL (Negative); Nitrite Negative (Negative); Protein, Urine (Dipstick) Negative (Neg-Trace); RBC/HPF 0-3 HPF (0-3); Specific Gravity, Urine 1.009 (1.002-1.036); Squamous Epithelial 0-3 HPF (0-3); Urobilinogen Normal mg/dL (Less than 2); WBC/HPF 0-3 HPF (0-3)
[2022-12-21 09:26] LABS: Urine Culture Reflex No No
== END 2022-12-21 10:48 | disposition short-term general hospital (02) ==
LOC: ERS 05:55
DX: D57.219 Sickle-cell/Hb-C disease with crisis, unspecified (principal); Z20.822 Contact with and (suspected) exposure to COVID-19
CPT/HCPCS: 36415; 71045; 80053; 81001; 84484; 84703; 85025; 85046; 93005; 96361; 96374; 96375; 96376; J2270; J2405; Q0162

== ENCOUNTER 2023-05-15 22:32 | Observation (INO) | payer OTHER ==
[2023-05-15 23:22] LABS: Hematocrit 22.3 % (36.0-47.0); Hemoglobin 8.5 g/dL (12.0-16.0); Manual Diff?? YES; Mean Corpuscular HGB CONC 38.1 g/dL (32.0-36.0); Mean Corpuscular Hemoglobin 36.3 pg (27.0-31.0); Mean Corpuscular Volume 95.3 fl (78.0-98.0); Mean Platelet Volume 10.1 fL (7.4-10.4); Platelet Count 359 10x3/uL (130-400); RBC Distribution Width 18.4 % (11.5-14.5); Red Blood Cell (RBC) Count 2.34 mill/uL (4.20-5.40)
[2023-05-15 23:30] LABS: Delete Auto Diff?? YES
[2023-05-15 23:57] LABS: ALT (SGPT) 21 U/L (8-55); AST (SGOT) 41 U/L (5-34); Albumin 4.1 g/dL (3.5-5.0); Alkaline Phosphatase 88 U/L (40-110); Anion Gap 12 mmol/L (10-20); BUN (Urea Nitrogen) 11 mg/dL (7.0-18.7); Bilirubin, Total 5.8 mg/dL (0.2-1.2); Calc. Creatinine Clearance 0 mL/min (70-130); Calcium 9.3 mg/dL (7.8-10.44); Carbon Dioxide 24 mmol/L (22-29); Chloride 108 mmol/L (98-107); Estimated GFR 124; Globulin 3.1 g/dL (2.4-3.5); Glucose 76 mg/dL (70-105); Lipase 15 U/L (8-78); Potassium 3.8 mmol/L (3.5-5.1); Protein, Total 7.2 g/dL (6.0-8.3); Sodium 140 mmol/L (136-145); Troponin I Less than 0.010 ng/mL (< 0.028)
[2023-05-16] MEDS ORDERED: Ondansetron PF 4 MG/2 ML Vial ONE ×2 (00:09→08:38)
[2023-05-16] MEDS ORDERED: Morphine 10 MG/ML VIAL ONE (00:09)
[2023-05-16 00:27] LABS: Bacteria/HPF None Seen HPF (None Seen); Bilirubin Negative (Negative); Blood, Urine 2+ (Negative); CAUTI Indications for Culture Immunosuppressed; Clarity Clear (Clear); Glucose, Urine (Dipstick) Normal (Negative); Ketone, Urine Negative (Negative); Leukocyte Negative Leu/uL (Negative); Nitrite Negative (Negative); Protein, Urine (Dipstick) 50 mg/dL (Neg-Trace); RBC/HPF None Seen HPF (0-3); Specific Gravity, Urine 1.009 (1.002-1.036); Squamous Epithelial 0-3 HPF (0-3); Urobilinogen Normal mg/dL (Less than 2); WBC/HPF 0-3 HPF (0-3)
[2023-05-16] MEDS ORDERED: Azithromycin 250 MG TAB ONE (00:49)
[2023-05-16 00:52] LABS: Pregnancy Test - Urine (BHCG) Negative (Negative); Pregu Control Background? CLEAR/WHITE (CLR/WHITE); Pregu Control Bar Appear? YES (CONTROL BAR); Specific Gravity 1.009 (1.002-1.036); Urine Culture Reflex Yes Yes
[2023-05-16 00:55] LABS: Anisocytosis MODERATE=16-30 cells HPF (0-5); Band 1 % (5-11); CellaVision Operator ID LAB.JMM; Elliptocytes SLIGHT = 2-5 cells HPF (0-1); Eosinophils 3 % (0-10); Lymphocytes 48 % (21-51); Macrocytosis MODERATE=16-30 cells HPF (0-5); Monocytes 11 % (0-10); Neutrophil 35 % (42-75); Nucleated RBC (Manual Ct) 3 % (0); Platelet Adequacy Comment Platelets Normal; Poikilocytosis MODERATE=16-30 cells HPF (0-5); Polychromasia MODERATE = 3-4 cells HPF (0-2); Sickle Cells MODERATE= 6-15 cells HPF (None Seen); Target Cells SLIGHT = 2-5 cells HPF (0-1); Total Cell Count 100
[2023-05-16] MEDS ORDERED: Ondansetron PF 4 MG/2 ML Vial IVP PRN ×2 (01:34→01:45)
[2023-05-16] MEDS ORDERED: Acetaminophen 325 MG TAB PO PRN (01:34)
[2023-05-16] MEDS ORDERED: Ondansetron ODT 4 MG TAB PO PRN (01:34)
[2023-05-16] MEDS ORDERED: Acetaminophen 650 MG Suppository PR PRN (01:34)
[2023-05-16] MEDS ORDERED: Morphine 4 MG/ML VIAL SLOW IVP PRN ×2 (01:40→11:57)
[2023-05-16] MEDS ORDERED: Sodium Chloride 0.9% 1,000 ML IV SCH ×2 (01:45→03:30)
[2023-05-16] MEDS ORDERED: Ondansetron ODT 4 MG TAB SL PRN (01:45)
[2023-05-16] MEDS ORDERED: cefTRIAXone\\ROCEPHIN 1 GM in Sodium Chloride 0.9% 100 ML IVPB SCH (02:00)
[2023-05-16 02:43] VITALS: BMI 28.3
[2023-05-16] MEDS ORDERED: cefTRIAXone (ROCEPHIN) 1 GM VIAL ONE (03:20)
[2023-05-16] MEDS ORDERED: Sodium Chloride 0.9% 100 ML ONE (03:20)
[2023-05-16] MEDS ORDERED: Acetaminophen 325 MG TAB ONE (03:20)
[2023-05-16] MEDS ORDERED: Morphine 4 MG/ML VIAL ONE ×2 (04:32→08:38)
[2023-05-16] MEDS: Morphine 4 MG/ML VIAL SLOW IVP PRN ×2 (04:37→08:44)
[2023-05-16 07:03] LABS: Hemoglobin 7.5 g/dL (12.0-16.0); Manual Diff?? YES; Mean Corpuscular HGB CONC 37.5 g/dL (32.0-36.0); Mean Corpuscular Hemoglobin 36.4 pg (27.0-31.0); Mean Corpuscular Volume 97.1 fl (78.0-98.0); Mean Platelet Volume 10.7 fL (7.4-10.4); Platelet Count 276 10x3/uL (130-400); RBC Distribution Width 18.5 % (11.5-14.5); Red Blood Cell (RBC) Count 2.06 mill/uL (4.20-5.40); White Blood Cell (WBC) Count 15.3 10x3/uL (4.8-10.8)
[2023-05-16 07:09] LABS: Anion Gap 11 mmol/L (10-20); BUN (Urea Nitrogen) 10 mg/dL (7.0-18.7); Calc. Creatinine Clearance 171 mL/min (70-130); Calcium 8.7 mg/dL (7.8-10.44); Carbon Dioxide 24 mmol/L (22-29); Chloride 109 mmol/L (98-107); Estimated GFR 127; Glucose 89 mg/dL (70-105); Potassium 3.6 mmol/L (3.5-5.1); Sodium 140 mmol/L (136-145)
[2023-05-16 07:17] LABS: Delete Auto Diff?? YES
[2023-05-16 07:57] LABS: Anisocytosis MARKED = >30 cells HPF (0-5); Band 5 % (5-11); CellaVision Operator ID LAB.KW3; Large Platelets 7.7 % (0-5); Lymphocytes 23 % (21-51); Macrocytosis MODERATE=16-30 cells HPF (0-5); Metamyelocyte 5 % (0-0); Monocytes 9 % (0-10); Myelocyte 2 % (0-0); Neutrophil 56 % (42-75); Nucleated RBC (Manual Ct) 14 % (0); Platelet Adequacy Comment Platelets Normal; Polychromasia MODERATE = 3-4 cells HPF (0-2); Sickle Cells SLIGHT = 1-5 cells HPF (None Seen); Target Cells SLIGHT = 2-5 cells HPF (0-1); Total Cell Count 117
[2023-05-16 11:12] VITALS: BP 122/77; TEMP 98.2
[2023-05-16] MEDS ORDERED: HYDROcodone/Acetaminophen 10/325 mg Tablet PO PRN (11:56)
[2023-05-16] MEDS ORDERED: HYDROcodone/Acetaminophen 5/325 mg Tablet PO PRN (11:56)
[2023-05-16] MEDS ORDERED: traMADol HCl 50 MG TAB PO PRN (11:56)
[2023-05-16] MEDS ORDERED: Methocarbamol 500 MG TAB PO PRN (11:57)
[2023-05-16] MEDS ORDERED: Ondansetron ODT 4 MG TAB ONE (15:59)
[2023-05-16] MEDS ORDERED: Senokot S 8.6-50 MG TAB PO SCH (21:00)
[2023-05-16] MEDS ORDERED: Azithromycin 500 MG in Sodium Chloride 0.9% 250 ML 250 ML IVPB SCH (21:00)
== END 2023-05-16 16:00 | disposition home or self-care (01) ==
LOC: ERS 22:32 → ERHOLD 05-16 01:32
PROVIDERS: ADMIT Student in an Organized Health Care Education/Training Program; ATTEND Internal Medicine
DX: D57.00 Hb-SS disease with crisis, unspecified (principal); D57.1 Sickle-cell disease without crisis; D50.0 Iron deficiency anemia secondary to blood loss (chronic); Z79.899 Other long term (current) drug therapy; Z90.49 Acquired absence of other specified parts of digestive tract
CPT/HCPCS: 36415; 71045; 80048; 80053; 81001; 81025; 83605; 83690; 84484; 85025; 85046; 87040; 87086; 93005; 96361; 96374; 96375; 96376; G0378; J0696; J2270; J2405; J3490; J7050; Q0162

== ENCOUNTER 2024-12-29 04:19 | Emergency (ER) | payer OTHER ==
[2024-12-29] MEDS ORDERED: Ondansetron PF 4 MG/2 ML Vial ONE (04:48)
[2024-12-29 05:12] LABS: ALT (SGPT) 16 U/L (Less than 34); AST (SGOT) 55 U/L (11-34); Albumin 4.2 g/dL (3.1-4.5); Alkaline Phosphatase 104 U/L (40-110); Anion Gap 12 mmol/L (10-20); BUN (Urea Nitrogen) 15 mg/dL (7.0-18.7); Bilirubin, Total 5.8 mg/dL (0.3-1.2); Calc. Creatinine Clearance 0 mL/min (70-130); Calcium 9.1 mg/dL (7.8-10.44); Carbon Dioxide 21 mmol/L (22-29); Chloride 113 mmol/L (98-107); Globulin 3.1 g/dL (2.4-3.5); Glucose 101 mg/dL (70-105); Potassium 4.4 mmol/L (3.5-5.1); Sodium 142 mmol/L (136-145)
[2024-12-29] MEDS ORDERED: HYDROmorphone 0.5 MG/0.5 ML SYRINGE ONE ×2 (05:14→06:32)
[2024-12-29 05:29] LABS: Hematocrit 20.3 % (36.0-47.0); Hemoglobin 7.6 g/dL (12.0-16.0); Mean Corpuscular Hemoglobin 36.4 pg (27.0-31.0); Mean Corpuscular Volume 97.1 fL (78.0-98.0); Platelet Count 359 10x3/uL (130-400); Red Blood Cell (RBC) Count 2.09 mill/uL (4.20-5.40); White Blood Cell (WBC) Count 11.94 10x3/uL (4.8-10.8)
[2024-12-29 05:41] LABS: Anisocytosis SLIGHT = 6-15 cells HPF (0-5); Nucleated RBC (Manual Ct) 6 % (0); Platelet Adequacy Comment Platelets Normal; Polychromasia SLIGHT = 2-3 cells HPF (0-2); Sickle Cells SLIGHT = 1-5 cells HPF (None Seen); Target Cells SLIGHT = 2-5 cells HPF (0-1)
== END 2024-12-29 07:31 | disposition home or self-care (01) ==
LOC: ERS 04:19
DX: D57.00 Hb-SS disease with crisis, unspecified (principal)
CPT/HCPCS: 71045; 80053; 84484; 85025; 85046; 86850; 86900; 86901; 93005; 94760; 96361; 96374; 96375; 96376; J1171; J2270; J2405